=== PATIENT | male | born 1935 | race Hispanic/Latino ===

== ENCOUNTER 2019-09-27 12:16 | Inpatient (IN) | payer MEDICARE ==
[2019-09-27] MEDS ORDERED: ZIPRASIDONE MESYLATE 20 MG VIAL IM PRN (13:12)
[2019-09-27 14:34] LABS: Alanine Aminotransferase 8 units/L (7-56); Albumin 4.3 g/dL (3.9-5); BUN/Creatinine Ratio 20; Blood Urea Nitrogen 20 mg/dL (9-20); Calcium 9.1 mg/dL (8.4-10.2); Chol/HDL Ratio 4.52 %; HDL Cholesterol 59 mg/dL (40-59); Hemolysis Index 14; LDL Cholesterol,Direct 200 mg/dL (50-130)
[2019-09-27 15:21] LABS: Basophils % (Auto) 0.7 % (0.0-1.8); Eosinophils # (Auto) 0.2 K/mm3 (0.0-0.4); Eosinophils % (Auto) 2.8 % (0.0-4.3); Hematocrit 44.9 % (35.5-45.6); Hemoglobin 15.2 gm/dl (11.8-15.2); Lymphocytes # (Auto) 1.3 K/mm3 (1.2-5.4); Lymphocytes % (Auto) 19.5 % (13.4-35.0); Mean Corpuscular HGB Conc 34 % (32-34); Mean Corpuscular Volume 96 fl (84-94); Monocytes # (Auto) 0.6 K/mm3 (0.0-0.8); Monocytes % (Auto) 8.8 % (0.0-7.3); Platelet Count 346 K/mm3 (140-440); Red Blood Count 4.66 M/mm3 (3.65-5.03); Red Cell Distribution Width 12.8 % (13.2-15.2)
--- NOTE | 2019-09-27 15:59 | Consultation ---
History of Present Illness - Reason for Consult Consult date: 09/27/19 Medical management Requesting physician: NELY TIRADO - History of Present Illness 84 YO Male with Dementia admitted to [facility] for Psychiatric Stabilization. Consult placed by Dr. Tirado for medical management. Patient seen and evaluated in the recreation room. Patient denies fever, chills, chest pain, palpitation, productive cough, recent ill contacts. Patient denies any complaints at the time of my exam and interview. No reported nursing events. Patient appears comfortable. Past History Past Medical History: other (See HPI) Past Surgical History: No surgical history, Other (Reviewed) Social history: single. denies: smoking, alcohol abuse, prescription drug abuse Family history: no significant family history (Reviewed) Medications and Allergies Allergies Allergy/AdvReac Type Severity Reaction Status Date / Time No Known Allergies Allergy Verified 09/27/19 12:52 Home Medications Medication Instructions Recorded Confirmed Last Taken Type FLUoxetine [PROzac] 20 mg DAILY 09/27/19 09/27/19 04/06/19 History 20 Namenda Xr 10 mg PO DAILY 09/27/19 09/27/19 Unknown History Razadyne 24 mg PO Q24HR 09/27/19 09/27/19 Unknown History Active Meds: Active Medications Melatonin (Melatonin) 5 mg PO QHS PRN PRN Reason: Sleep Trazodone HCl (Desyrel) 50 mg PO QHS MEI Ziprasidone (Geodon) 10 mg IM Q6H PRN PRN Reason: Agitation Review of Systems Constitutional: no weight loss, no weight gain, no fever, no chills Ears, nose, mouth and throat: no ear pain, no ear discharge, no tinnitis, no decreased hearing, no nose pain, no nasal discharge, no sinus pain Cardiovascular: no chest pain, no orthopnea, no rapid/irregular heart beat, no syncope, no lightheadedness, no shortness of breath Respiratory: no cough, no cough with sputum, no excessive sputum, no dyspnea on exertion Gastrointestinal: no abdominal pain, no nausea, no vomiting, no hematemesis Genitourinary Male: no dysuria, no hematuria, no flank pain, no discharge, no urinary frequency, no urinary hesitancy, no nocturia, no incontinence Rectal: no pain, no incontinence, no bleeding Musculoskeletal: no neck stiffness, no neck pain, no shooting arm pain, no arm numbness/tingling, no leg numbness/tingling, no redness of joints Integumentary: no rash, no pruritis, no redness, no sores, no wounds Neurological: no transient paralysis, no paralysis, no weakness, no parathesias, no numbness Psychiatric: no anxiety, no sleep disturbances, no insomnia, no hypersomnia, no change in appetite, no change in libido, no suicidal ideation, no disorientation Endocrine: no cold intolerance, no polyphagia, no excessive thirst, no polydipsia, no polyuria, no nocturia Hematologic/Lymphatic: no easy bruising, no easy bleeding, no lymphadenopathy, no lymphedema Allergic/Immunologic: no urticaria, no wheezing, no anaphylaxis Exam - Constitutional General appearance: Present: no acute distress - EENT Eyes: Present: PERRL ENT: hearing intact, clear oral mucosa - Neck Neck: Present: supple, normal ROM - Respiratory Respiratory effort: normal Respiratory: bilateral: CTA - Cardiovascular Heart Sounds: Present: S1 & S2. Absent: rub, click - Extremities Extremities: pulses symmetrical, No edema Peripheral Pulses: within normal limits - Abdominal General gastrointestinal: Present: soft, non-tender, non-distended, normal bowel sounds Male genitourinary: Present: normal - Integumentary Integumentary: Present: clear, warm, dry - Musculoskeletal Musculoskeletal: gait normal, strength equal bilaterally - Psychiatric Psychiatric: appropriate mood/affect, intact judgment & insight - Neurologic Neurologic: CNII-XII intact, moves all extremities Results - Labs CBC & Chem 7: 09/27/19 13:59 09/27/19 13:59 Labs: Abnormal lab results 09/27/19 09/27/19 Range/Units 13:59 13:59 MCV 96 H (84-94) fl MCH 33 H (28-32) pg RDW 12.8 L (13.2-15.2) % [place] % (Auto) 8.8 H (0.0-7.3) % Glucose 115 H (75-100) mg/dL Cholesterol 267 H (50-199) mg/dL LDL Cholesterol Direct 200 H (50-130) mg/dL Assessment and Plan - Patient Problems (1) Dementia with behavioral disturbance Current Visit: Yes Status: Acute Plan to address problem: Supportive care, anxiolytic therapy,
[2019-09-27] MEDS ORDERED: MELATONIN 5 MG TAB PO PRN (22:00)
[2019-09-27] MEDS: traZODone 50 MG TAB PO SCH (23:13)
--- NOTE | 2019-09-28 07:24 | History and Physical Report ---
GP History & Physical - History of Present Illness Date of admission: 09/27/19 Date of Examination: 09/28/19 Reason for Admission: Psychopathology interference Chief Complaint: Behavioral disturbance History of Present Illness: Nurse Admission note: Patient is an 84 y/o male admitted to unit on 1012. he is alert and oriented x2. He has hx of Dementia and Depression. Patient verbalized Suicidal ideations yesterday but now denies. He denies homicidal thoughts and hallucinations. Patient has NKDA. Skin is intact, and he has hx of hypertension. He is pleasant and cooperative. He ate meal well. No complaints or signs of distress noted. Patient was oriented to unit and placed on Fall precaution for safety. Will continue to monitor. HPI Patient is a 84 year old male with medical history of Dementia who was admitted for behavioral disturbances. Patient states he does not know where he is, but he thinks this place could pass for a hospital. He reports taking him longer than u sual to find his room, does not know why he is here and self endorses having poor memory function and also being a chronic complainer. PAST PSYCHIATRIC HISTORY Diagnoses: Dementia Suicide attempts or Self-harm behavior: None reported Prior psychiatric hospitalizations: unknown Substance Abuse history: denies Previous psychiatric medications tried: unknown Outpatient treatment: unknown PAST MEDICAL HISTORY: unknown Family Psychiatric History: None reported or documented SOCIAL HISTORY Marital Status: Living Arrangements: unknown Employment Status: retired Access to guns/weapons: unknown Education: High School History of Abuse: none reported Legal History: none reported REVIEW OF SYSTEMS Constitutional: Negative for weight loss ENT: Negative for stridor Respiratory: Negative for cough or hemoptysis All other systems reviewed and are negative MENTAL STATUS EXAMINATION General Appearance and Behavior: Age appropriate, good hygiene, wearing appropriate clothes, good eye contact, cooperative polite with questioning. Cooperation: Participating/engaged Psychomotor Behavior: unremarkable and within normal limits Mood: Good Affect and affective range: congruent with mood Thought Process: Loose Thought Content: Illogical Speech: Normal volume, Regular rate and rhythm Intellectual Functioning: Fair Suicidal Ideation: Denies SI Homicidal Ideation: Denies HI Impulse Control: Unimpaired Insight and Judgment: Impaired Memory: Demented Attention: Distractible Orientation: Alert,and demented Diagnoses: Assessment and Plan - Psychiatric problem (1) Dementia with behavioral disturbance Current Visit: Yes Status: Acute Treatment Plan Patient will be admitted for inpatient psychiatric evaluation, medication adjustment and close monitoring The patient's behavior, mood, sleep and appetite will be closely monitored. Patient will be enrolled in individual and group therapeutic sessions and encouraged to attend. Patient will be provided with a safe and structured environment. Patient's physical health needs will be addressed by the Hospitalist. Hospitalist Consulted Labs including CBC, CMP, Lipid profile and Hemoglobin A1C ordered Social Assessment will be completed and the Roofer Assistant will work with patient and family to ensure a suitable and safe disposition Medication adjustment will be made as clinically indicated Usual Wellness Yarsanism/Preservation: - Start Trazodone 50 mg po QHS & 50 mg po QHS PRN between 10 PM & 2 AM for insomnia - Start Melatonin 5 mg po QHS to promote circadian rhythm - Start [place]-3 for brain health, reduce impulsivity, and as adjunctive treatment for mood disorder, continue upon discharge given overall benefits. - Start B1 prophylaxis with 200 mg po for 5 days The patient agreed on the treatment plan, understood the risk, benefit, alternative treatment, potential consequence of no treatment, and gave informed consent. This is an acknowledgement statement that YAZMIN HAQUE is a 84 year old M who requires inpatient psychiatric admission for treatment which could reasonably be expected to improve the patient's behavior Estimated period of time patient will need to remain in the hospital: [7 ] Plan for post-hospital care: [ outpt] Legal Status: Voluntary Patient Problems: Current Active Problems Dementia with behavioral disturbance (Acute) Reaction to Hospitalization: Accepting Medications and Allergies Allergies Allergy/AdvReac Type Severity Reaction Status Date / Time No Known Allergies Allergy Verified 09/27/19 12:52 Home Medications Medication Instructions Recorded Confirmed Last Taken Type FLUoxetine [PROzac] 20 mg DAILY 09/27/19 09/27/19 04/06/19 History 20 Namenda Xr 10 mg PO DAILY 09/27/19 09/27/19 Unknown History Razadyne 24 mg PO Q24HR 09/27/19 09/27/19 Unknown History Active Meds: Active Medications Melatonin (Melatonin) 5 mg PO QHS PRN PRN Reason: Sleep Trazodone HCl (Desyrel) 50 mg PO QHS MEI Last Admin: 09/27/19 23:13 Dose: 50 mg Documented by: Ziprasidone (Geodon) 10 mg IM Q6H PRN PRN Reason: Agitation Results - Results Labs/Vitals: Laboratory Last Values WBC 6.5 K/mm3 (4.5-11.0) 09/27/19 13:59 RBC 4.66 M/mm3 (3.65-5.03) 09/27/19 13:59 Hgb 15.2 gm/dl (11.8-15.2) 09/27/19 13:59 Hct 44.9 % (35.5-45.6) 09/27/19 13:59 MCV 96 fl (84-94) H 09/27/19 13:59 MCH 33 pg (28-32) H 09/27/19 13:59 MCHC 34 % (32-34) 09/27/19 13:59 RDW 12.8 % (13.2-15.2) L 09/27/19 13:59 Plt Count 346 K/mm3 (140-440) 09/27/19 13:59 Lymph % (Auto) 19.5 % (13.4-35.0) 09/27/19 13:59 [place] % (Auto) 8.8 % (0.0-7.3) H 09/27/19 13:59 Eos % (Auto) 2.8 % (0.0-4.3) 09/27/19 13:59 Baso % (Auto) 0.7 % (0.0-1.8) 09/27/19 13:59 Lymph # 1.3 K/mm3 (1.2-5.4) 09/27/19 13:59 [place] # 0.6 K/mm3 (0.0-0.8) 09/27/19 13:59 Eos # 0.2 K/mm3 (0.0-0.4) 09/27/19 13:59 Baso # 0.0 K/mm3 (0.0-0.1) 09/27/19 13:59 Seg Neutrophils % 68.2 % (40.0-70.0) 09/27/19 13:59 Seg Neutrophils # 4.4 K/mm3 (1.8-7.7) 09/27/19 13:59 Sodium 138 mmol/L (137-145) 09/27/19 13:59 Potassium 4.5 mmol/L (3.6-5.0) 09/27/19 13:59 Chloride 102.0 mmol/L (98-107) 09/27/19 13:59 Carbon Dioxide 24 mmol/L (22-30) 09/27/19 13:59 Anion Gap 17 mmol/L 09/27/19 13:59 BUN 20 mg/dL (9-20) 09/27/19 13:59 Creatinine 1.0 mg/dL (0.8-1.5) 09/27/19 13:59 Estimated GFR > 60 ml/min 09/27/19 13:59 BUN/Creatinine Ratio 20 % 09/27/19 13:59 Glucose 115 mg/dL (75-100) H 09/27/19 13:59 POC Glucose 84 (70-105) 09/27/19 18:15 Hemoglobin A1c 5.5 % (4-6) 09/27/19 13:59 Calcium 9.1 mg/dL (8.4-10.2) 09/27/19 13:59 Total Bilirubin 0.40 mg/dL (0.1-1.2) 09/27/19 13:59 AST 14 units/L (5-40) 09/27/19 13:59 ALT 8 units/L (7-56) 09/27/19 13:59 Alkaline Phosphatase 60 units/L (35-129) 09/27/19 13:59 Total Protein 7.1 g/dL (6.3-8.2) 09/27/19 13:59 Albumin 4.3 g/dL (3.9-5) 09/27/19 13:59 Albumin/Globulin Ratio 1.5 % 09/27/19 13:59 Triglycerides 146 mg/dL (2-149) 09/27/19 13:59 Cholesterol 267 mg/dL (50-199) H 09/27/19 13:59 LDL Cholesterol Direct 200 mg/dL (50-130) H 09/27/19 13:59 HDL Cholesterol 59 mg/dL (40-59) 09/27/19 13:59 Cholesterol/HDL Ratio 4.52 % 09/27/19 13:59 TSH 2.040 mlU/mL (0.270-4.200) 09/27/19 13:59 Last Vital Signs Temp 97.9 F 09/27/19 13:09 Pulse 59 L 09/27/19 19:23 Resp 18 09/27/19 13:09 BP 171/75 09/27/19 19:30 Pulse Ox 99 09/27/19 19:23 Physical Examination - Constitutional Vitals: Vital Signs Temp Pulse Resp BP Pulse Ox 97.9 F 59 L 18 171/75 99 09/27/19 13:09 09/27/19 19:23 09/27/19 13:09 09/27/19 19:30 09/27/19 19:23 Temperature -Last 24 Hours Temperature 97.9 F Mental Status Exam - Vital signs Last Vital Signs Temp 97.9 F 09/27/19 13:09 Pulse 59 L 09/27/19 19:23 Resp 18 09/27/19 13:09 BP 171/75 09/27/19 19:30 Pulse Ox 99 09/27/19 19:23 Assessment and Plan - Psychiatric problem (1) Dementia with behavioral disturbance Current Visit: Yes Status: Acute Physician Certification - Certification Statement Physician Certification Statement: This is an acknowledgement statement that YAZMIN HAQUE is a 84 year old M who requires inpatient psychiatric admission for treatment which could reasonably be expected to improve the patient's condition for Estimated period of time patient will need to remain in the hospital: [ ] Plan for post-hospital care: [ ]
[2019-09-28] MEDS ORDERED: NAMENDA 10 MG PO SCH (10:00)
[2019-09-28] MEDS ORDERED: FLUoxetine 20 MG CAP PO SCH (10:00)
[2019-09-28] MEDS ORDERED: GALANTAMINE 24 MG PO SCH (10:00)
[2019-09-28] MEDS: MEMANTINE 10 MG TAB PO SCH (10:14)
[2019-09-28] MEDS: FLUoxetine 10 MG TAB PO SCH (10:14)
[2019-09-28] MEDS: OMEGA-3 FATTY ACIDS/FISH OIL 1 GRAM CAP PO SCH ×3 (10:14→22:23)
[2019-09-28] MEDS: risperiDONE 0.25 MG TAB PO SCH ×3 (10:15→22:23)
--- NOTE | 2019-09-28 19:18 | Progress Note ---
Assessment and Plan - Patient Problems (1) Dementia with behavioral disturbance Current Visit: Yes Status: Acute Plan to address problem: Supportive care, anxiolytic therapy, History Interval history: 84 YO Male with Dementia admitted to [facility] for Psychiatric Stabilization. Patient seen and evaluated in the recreation room. Patient denies fever, chills, chest pain, palpitation, productive cough, recent ill contacts. Patient denies any complaints at the time of my exam and interview. No reported nursing events. Patient appears comfortable. Hospitalist Physical - Constitutional Vitals: Temp Pulse Resp BP Pulse Ox 98.0 F 67 18 133/72 99 09/28/19 10:02 09/28/19 10:02 09/28/19 10:02 09/28/19 10:02 09/28/19 10:02 General appearance: Present: no acute distress - EENT Eyes: Present: PERRL ENT: hearing intact - Neck Neck: Present: supple, normal ROM - Respiratory Respiratory: bilateral: CTA - Cardiovascular Rhythm: regular Heart Sounds: Present: S1 & S2 - Extremities Extremities: no ischemia Peripheral Pulses: within normal limits - Abdominal General gastrointestinal: soft, non-tender, non-distended - Integumentary Integumentary: Present: clear, warm, dry - Psychiatric Psychiatric: appropriate mood/affect, cooperative - Neurologic Neurologic: CNII-XII intact Results - Labs CBC & Chem 7: 09/27/19 13:59 09/27/19 13:59 Labs: Laboratory Last Values WBC 6.5 K/mm3 (4.5-11.0) 09/27/19 13:59 RBC 4.66 M/mm3 (3.65-5.03) 09/27/19 13:59 Hgb 15.2 gm/dl (11.8-15.2) 09/27/19 13:59 Hct 44.9 % (35.5-45.6) 09/27/19 13:59 MCV 96 fl (84-94) H 09/27/19 13:59 MCH 33 pg (28-32) H 09/27/19 13:59 MCHC 34 % (32-34) 09/27/19 13:59 RDW 12.8 % (13.2-15.2) L 09/27/19 13:59 Plt Count 346 K/mm3 (140-440) 09/27/19 13:59 Lymph % (Auto) 19.5 % (13.4-35.0) 09/27/19 13:59 [place] % (Auto) 8.8 % (0.0-7.3) H 09/27/19 13:59 Eos % (Auto) 2.8 % (0.0-4.3) 09/27/19 13:59 Baso % (Auto) 0.7 % (0.0-1.8) 09/27/19 13:59 Lymph # 1.3 K/mm3 (1.2-5.4) 09/27/19 13:59 [place] # 0.6 K/mm3 (0.0-0.8) 09/27/19 13:59 Eos # 0.2 K/mm3 (0.0-0.4) 09/27/19 13:59 Baso # 0.0 K/mm3 (0.0-0.1) 09/27/19 13:59 Seg Neutrophils % 68.2 % (40.0-70.0) 09/27/19 13:59 Seg Neutrophils # 4.4 K/mm3 (1.8-7.7) 09/27/19 13:59 Sodium 138 mmol/L (137-145) 09/27/19 13:59 Potassium 4.5 mmol/L (3.6-5.0) 09/27/19 13:59 Chloride 102.0 mmol/L (98-107) 09/27/19 13:59 Carbon Dioxide 24 mmol/L (22-30) 09/27/19 13:59 Anion Gap 17 mmol/L 09/27/19 13:59 BUN 20 mg/dL (9-20) 09/27/19 13:59 Creatinine 1.0 mg/dL (0.8-1.5) 09/27/19 13:59 Estimated GFR > 60 ml/min 09/27/19 13:59 BUN/Creatinine Ratio 20 % 09/27/19 13:59 Glucose 115 mg/dL (75-100) H 09/27/19 13:59 POC Glucose 84 (70-105) 09/27/19 18:15 Hemoglobin A1c 5.5 % (4-6) 09/27/19 13:59 Calcium 9.1 mg/dL (8.4-10.2) 09/27/19 13:59 Total Bilirubin 0.40 mg/dL (0.1-1.2) 09/27/19 13:59 AST 14 units/L (5-40) 09/27/19 13:59 ALT 8 units/L (7-56) 09/27/19 13:59 Alkaline Phosphatase 60 units/L (35-129) 09/27/19 13:59 Total Protein 7.1 g/dL (6.3-8.2) 09/27/19 13:59 Albumin 4.3 g/dL (3.9-5) 09/27/19 13:59 Albumin/Globulin Ratio 1.5 % 09/27/19 13:59 Triglycerides 146 mg/dL (2-149) 09/27/19 13:59 Cholesterol 267 mg/dL (50-199) H 09/27/19 13:59 LDL Cholesterol Direct 200 mg/dL (50-130) H 09/27/19 13:59 HDL Cholesterol 59 mg/dL (40-59) 09/27/19 13:59 Cholesterol/HDL Ratio 4.52 % 09/27/19 13:59 TSH 2.040 mlU/mL (0.270-4.200) 09/27/19 13:59 [place]/IV: Voiding Method Toilet Active Medications - Current Medications Current Medications: Generic Name Dose Route Start Last Admin Trade Name Freq PRN Reason Stop Dose Admin Fish Oil 2,000 mg 09/28/19 10:00 09/28/19 10:14 Fish Oil PO 2,000 mg BID MEI Administration Fluoxetine HCl 10 mg 09/28/19 10:00 09/28/19 10:14 Prozac PO 10 mg QDAY MEI Administration Melatonin 5 mg 09/27/19 22:00 Melatonin PO QHS PRN Sleep Memantine 10 mg 09/28/19 10:00 09/28/19 10:14 Memantine PO 10 mg QDAY MEI Administration Miscellaneous Medication 24 mg 09/28/19 10:00 Razadyne PO Q24HR MEI Risperidone 0.5 mg 09/28/19 10:00 09/28/19 10:15 Risperdal PO 0.5 mg BID MEI Administration Trazodone HCl 50 mg 09/27/19 22:00 09/27/19 23:13 Desyrel PO 50 mg QHS MEI Administration Ziprasidone 10 mg 09/27/19 13:12 Geodon IM Q6H PRN Agitation
[2019-09-28] MEDS: traZODone 50 MG TAB PO SCH ×2 (21:32→22:23)
--- NOTE | 2019-09-29 07:15 | Progress Note ---
Subjective Date of service: 09/29/19 Principal diagnosis: Dementia with behavioral disturbance Subjective Comment: Psych Nurse note: pt spent his evening in activity room watching television, pt is alert and oriented to person and place, easily irritable, pt is labile, he initially refused his medication, upset about being here, he said he wanted to go home, pt states, ''I don't care if I or not". He went to his room and lay down, got up after an hour, requested to use the bathroom, staff showed him his bathroom; staff offered water and medication, he took his medication and thanked the keno writer, no distress noted, will continue to monitor for safety. PSYCH PROGRESS HPI Patient laying in bed but awake, asked if I was the doctor and whats going and why is he here. Questions were answered. Patient says he thinks he is okay but not as much as he would like to be but pretty good. Pt reports sleeping well but does not remember what he ate last night. Reason to continue inpatient psychiatric management: Easily irritable towards the evening, heard yelling "I dont care if I or not". Medication increased today. MENTAL STATUS EXAMINATION General Appearance and Behavior: Age appropriate, good hygiene, wearing appropriate clothes, good eye contact, cooperative polite with questioning. Cooperation: Participating/engaged Psychomotor Behavior: unremarkable and within normal limits Mood: Good Affect and affective range: congruent with mood Thought Process: Loose Thought Content: Illogical Speech: Normal volume, Regular rate and rhythm Intellectual Functioning: Fair Suicidal Ideation: Denies SI Homicidal Ideation: Denies HI Impulse Control: Unimpaired Insight and Judgment: Impaired Memory: Demented Attention: Distractible Orientation: Alert,and demented Diagnoses: Assessment and Plan - Psychiatric problem (1) Dementia with behavioral disturbance Current Visit: Yes Status: Acute Treatment Plan Risperidone increased to 1mg BID Patient will be admitted for inpatient psychiatric evaluation, medication a djustment and close monitoring The patient's behavior, mood, sleep and appetite will be closely monitored. Patient will be enrolled in individual and group therapeutic sessions and encouraged to attend. Patient will be provided with a safe and structured environment. Patient's physical health needs will be addressed by the Hospitalist. Hospitalist Consulted Labs including CBC, CMP, Lipid profile and Hemoglobin A1C ordered Social Assessment will be completed and the Nail Galvanizer will work with patient and family to ensure a suitable and safe disposition Medication adjustment will be made as clinically indicated Usual Wellness Hindu/Preservation: - Start Trazodone 50 mg po QHS & 50 mg po QHS PRN between 10 PM & 2 AM for insomnia - Start Melatonin 5 mg po QHS to promote circadian rhythm - Start [place]-3 for brain health, reduce impulsivity, and as adjunctive treatment for mood disorder, continue upon discharge given overall benefits. - Start B1 prophylaxis with 200 mg po for 5 days The patient agreed on the treatment plan, understood the risk, benefit, alternative treatment, potential consequence of no treatment, and gave informed consent. This is an acknowledgement statement that YAZMIN HAQUE is a 84 year old M who requires inpatient psychiatric admission for treatment which could reasonably be expected to improve the patient's behavior Estimated period of time patient will need to remain in the hospital: [6] Plan for post-hospital care: [ outpt] Assessment and Plan - Patient Problems (1) Dementia with behavioral disturbance Current Visit: Yes Status: Acute Medications and Allergies Allergies Allergy/AdvReac Type Severity Reaction Status Date / Time No Known Allergies Allergy Verified 09/27/19 12:52 Home Medications Medication Instructions Recorded Confirmed Last Taken Type FLUoxetine [PROzac] 20 mg DAILY 09/27/19 09/27/19 04/06/19 History 20 Namenda Xr 10 mg PO DAILY 09/27/19 09/27/19 Unknown History Razadyne 24 mg PO Q24HR 09/27/19 09/27/19 Unknown History Active Meds: Active Medications Fish Oil (Fish Oil) 2,000 mg PO BID [facility] Last Admin: 09/28/19 22:23 Dose: 2,000 mg Documented by: Fluoxetine HCl (Prozac) 10 mg PO QDAY [facility] Last Admin: 09/28/19 10:14 Dose: 10 mg Documented by: Melatonin (Melatonin) 5 mg PO QHS PRN PRN Reason: Sleep Memantine (Memantine) 10 mg PO QDAY [facility] Last Admin: 09/28/19 10:14 Dose: 10 mg Documented by: Miscellaneous Medication (Razadyne) 24 mg PO Q24HR [facility] Risperidone (Risperdal) 0.5 mg PO BID [facility] Last Admin: 09/28/19 22:23 Dose: 0.5 mg Documented by: Trazodone HCl (Desyrel) 50 mg PO QHS [facility] Last Admin: 09/28/19 22:23 Dose: 50 mg Documented by: Ziprasidone (Geodon) 10 mg IM Q6H PRN PRN Reason: Agitation Results - Results Labs/Vitals: Laboratory Last Values WBC 6.5 K/mm3 (4.5-11.0) 09/27/19 13:59 RBC 4.66 M/mm3 (3.65-5.03) 09/27/19 13:59 Hgb 15.2 gm/dl (11.8-15.2) 09/27/19 13:59 Hct 44.9 % (35.5-45.6) 09/27/19 13:59 MCV 96 fl (84-94) H 09/27/19 13:59 MCH 33 pg (28-32) H 09/27/19 13:59 MCHC 34 % (32-34) 09/27/19 13:59 RDW 12.8 % (13.2-15.2) L 09/27/19 13:59 Plt Count 346 K/mm3 (140-440) 09/27/19 13:59 Lymph % (Auto) 19.5 % (13.4-35.0) 09/27/19 13:59 [place] % (Auto) 8.8 % (0.0-7.3) H 09/27/19 13:59 Eos % (Auto) 2.8 % (0.0-4.3) 09/27/19 13:59 Baso % (Auto) 0.7 % (0.0-1.8) 09/27/19 13:59 Lymph # 1.3 K/mm3 (1.2-5.4) 09/27/19 13:59 [place] # 0.6 K/mm3 (0.0-0.8) 09/27/19 13:59 Eos # 0.2 K/mm3 (0.0-0.4) 09/27/19 13:59 Baso # 0.0 K/mm3 (0.0-0.1) 09/27/19 13:59 Seg Neutrophils % 68.2 % (40.0-70.0) 09/27/19 13:59 Seg Neutrophils # 4.4 K/mm3 (1.8-7.7) 09/27/19 13:59 Sodium 138 mmol/L (137-145) 09/27/19 13:59 Potassium 4.5 mmol/L (3.6-5.0) 09/27/19 13:59 Chloride 102.0 mmol/L (98-107) 09/27/19 13:59 Carbon Dioxide 24 mmol/L (22-30) 09/27/19 13:59 Anion Gap 17 mmol/L 09/27/19 13:59 BUN 20 mg/dL (9-20) 09/27/19 13:59 Creatinine 1.0 mg/dL (0.8-1.5) 09/27/19 13:59 Estimated GFR > 60 ml/min 09/27/19 13:59 BUN/Creatinine Ratio 20 % 09/27/19 13:59 Glucose 115 mg/dL (75-100) H 09/27/19 13:59 POC Glucose 84 (70-105) 09/27/19 18:15 Hemoglobin A1c 5.5 % (4-6) 09/27/19 13:59 Calcium 9.1 mg/dL (8.4-10.2) 09/27/19 13:59 Total Bilirubin 0.40 mg/dL (0.1-1.2) 09/27/19 13:59 AST 14 units/L (5-40) 09/27/19 13:59 ALT 8 units/L (7-56) 09/27/19 13:59 Alkaline Phosphatase 60 units/L (35-129) 09/27/19 13:59 Total Protein 7.1 g/dL (6.3-8.2) 09/27/19 13:59 Albumin 4.3 g/dL (3.9-5) 09/27/19 13:59 Albumin/Globulin Ratio 1.5 % 09/27/19 13:59 Triglycerides 146 mg/dL (2-149) 09/27/19 13:59 Cholesterol 267 mg/dL (50-199) H 09/27/19 13:59 LDL Cholesterol Direct 200 mg/dL (50-130) H 09/27/19 13:59 HDL Cholesterol 59 mg/dL (40-59) 09/27/19 13:59 Cholesterol/HDL Ratio 4.52 % 09/27/19 13:59 TSH 2.040 mlU/mL (0.270-4.200) 09/27/19 13:59 Last Vital Signs Temp 97.6 F 09/28/19 22:00 Pulse 71 09/28/19 22:00 Resp 18 09/28/19 22:00 BP 110/69 09/28/19 22:00 Pulse Ox 98 09/28/19 22:00
[2019-09-29] MEDS: FLUoxetine 10 MG TAB PO SCH (09:49)
[2019-09-29] MEDS: MEMANTINE 10 MG TAB PO SCH (09:49)
[2019-09-29] MEDS: OMEGA-3 FATTY ACIDS/FISH OIL 1 GRAM CAP PO SCH ×2 (09:49→21:25)
[2019-09-29] MEDS: risperiDONE 1 MG TAB PO SCH ×2 (09:49→21:25)
[2019-09-29] MEDS: traZODone 50 MG TAB PO SCH (21:25)
--- NOTE | 2019-09-30 07:28 | Progress Note ---
Subjective Date of service: 09/30/19 Principal diagnosis: Dementia with behavioral disturbance Subjective Comment: Psych Nurse note:Patient is alert oriented to name, place and time. No distress noted, pt compliant with medications, eat 50%-75% of his meals. Pt is easily irritable, stays in his room most of this shift, pt say's 'just let me go home, why did you keep me here', staff explained to pt and the important of receiving treatment to get better, pt say's' What is the point'. Will continue to monitor. PSYCH PROGRESS HPI Patient seen this AM, says his having a lil bit of a FELIX and would like to stay in bed. Patient reports sleeping good and eating okay but says he does not remember going to another patients room and introducing himself as a doctor. Pt reports compliants with meds. Reason to continue inpatient psychiatric management: Irritability, meds adjustment made today. Sleep improved from previous changes. Will monitor for side effects. MENTAL STATUS EXAMINATION General Appearance and Behavior: Age appropriate, good hygiene, wearing appropriate clothes, good eye contact, cooperative polite with questioning. Cooperation: Participating/engaged Psychomotor Behavior: unremarkable and within normal limits Mood: Good Affect and affective range: congruent with mood Thought Process: Logical Thought Content: No paranoia or obsessions Speech: Normal volume, Regular rate and rhythm Intellectual Functioning: Fair Suicidal Ideation: Denies SI Homicidal Ideation: Denies HI Impulse Control: Unimpaired Insight and Judgment: Impaired Memory: Demented Attention: Distractible Orientation: Alert,and demented Diagnoses: Assessment and Plan - Psychiatric problem (1) Dementia with behavioral disturbance Current Visit: Yes Status: Acute Treatment Plan Risperidone increased to 2 mg BID Patient will be admitted for inpatient psychiatric evaluation, medication adjustment and close monitoring The patient's behavior, mood, sleep and appetite will be closely monitored. Patient will be enrolled in individual and group therapeutic sessions and encouraged to attend. Patient will be provided with a safe and structured environment. Patient's physical health needs will be addressed by the Hospitalist. Hosp italist Consulted Labs including CBC, CMP, Lipid profile and Hemoglobin A1C ordered Social Assessment will be completed and the Automatic Vulcanizing Lead Operator will work with patient and family to ensure a suitable and safe disposition Medication adjustment will be made as clinically indicated Usual Wellness Zoroastrianism/Preservation: - Start Trazodone 50 mg po QHS & 50 mg po QHS PRN between 10 PM & 2 AM for in somnia - Start Melatonin 5 mg po QHS to promote circadian rhythm - Start [place]-3 for brain health, reduce impulsivity, and as adjunctive treatment for mood disorder, continue upon discharge given overall benefits. - Start B1 prophylaxis with 200 mg po for 5 days The patient agreed on the treatment plan, understood the risk, benefit, alternative treatment, potential consequence of no treatment, and gave informed consent. This is an acknowledgement statement that YAZMIN HAQUE is a 84 year old M who requires inpatient psychiatric admission for treatment which could reasonably be expected to improve the patient's behavior Estimated period of time patient will need to remain in the hospital: [5] Plan for post-hospital care: [ outpt] Assessment and Plan - Patient Problems (1) Dementia with behavioral disturbance Current Visit: Yes Status: Acute Medications and Allergies Allergies Allergy/AdvReac Type Severity Reaction Status Date / Time No Known Allergies Allergy Verified 09/27/19 12:52 Home Medications Medication Instructions Recorded Confirmed Last Taken Type FLUoxetine [PROzac] 20 mg DAILY 09/27/19 09/27/19 04/06/19 History 20 Namenda Xr 10 mg PO DAILY 09/27/19 09/27/19 Unknown History Razadyne 24 mg PO Q24HR 09/27/19 09/27/19 Unknown History Active Meds: Active Medications Fish Oil (Fish Oil) 2,000 mg PO BID [facility] Last Admin: 09/29/19 21:25 Dose: 2,000 mg Documented by: Fluoxetine HCl (Prozac) 10 mg PO QDAY [facility] Last Admin: 09/29/19 09:49 Dose: 10 mg Documented by: Melatonin (Melatonin) 5 mg PO QHS PRN PRN Reason: Sleep Memantine (Memantine) 10 mg PO QDAY [facility] Last Admin: 09/29/19 09:49 Dose: 10 mg Documented by: Miscellaneous Medication (Razadyne) 24 mg PO Q24HR [facility] Trazodone HCl (Desyrel) 50 mg PO QHS [facility] Last Admin: 09/29/19 21:25 Dose: 50 mg Documented by: Ziprasidone (Geodon) 10 mg IM Q6H PRN PRN Reason: Agitation Results - Results Labs/Vitals: Laboratory Last Values WBC 6.5 K/mm3 (4.5-11.0) 09/27/19 13:59 RBC 4.66 M/mm3 (3.65-5.03) 09/27/19 13:59 Hgb 15.2 gm/dl (11.8-15.2) 09/27/19 13:59 Hct 44.9 % (35.5-45.6) 09/27/19 13:59 MCV 96 fl (84-94) H 09/27/19 13:59 MCH 33 pg (28-32) H 09/27/19 13:59 MCHC 34 % (32-34) 09/27/19 13:59 RDW 12.8 % (13.2-15.2) L 09/27/19 13:59 Plt Count 346 K/mm3 (140-440) 09/27/19 13:59 Lymph % (Auto) 19.5 % (13.4-35.0) 09/27/19 13:59 [place] % (Auto) 8.8 % (0.0-7.3) H 09/27/19 13:59 Eos % (Auto) 2.8 % (0.0-4.3) 09/27/19 13:59 Baso % (Auto) 0.7 % (0.0-1.8) 09/27/19 13:59 Lymph # 1.3 K/mm3 (1.2-5.4) 09/27/19 13:59 [place] # 0.6 K/mm3 (0.0-0.8) 09/27/19 13:59 Eos # 0.2 K/mm3 (0.0-0.4) 09/27/19 13:59 Baso # 0.0 K/mm3 (0.0-0.1) 09/27/19 13:59 Seg Neutrophils % 68.2 % (40.0-70.0) 09/27/19 13:59 Seg Neutrophils # 4.4 K/mm3 (1.8-7.7) 09/27/19 13:59 Sodium 138 mmol/L (137-145) 09/27/19 13:59 Potassium 4.5 mmol/L (3.6-5.0) 09/27/19 13:59 Chloride 102.0 mmol/L (98-107) 09/27/19 13:59 Carbon Dioxide 24 mmol/L (22-30) 09/27/19 13:59 Anion Gap 17 mmol/L 09/27/19 13:59 BUN 20 mg/dL (9-20) 09/27/19 13:59 Creatinine 1.0 mg/dL (0.8-1.5) 09/27/19 13:59 Estimated GFR > 60 ml/min 09/27/19 13:59 BUN/Creatinine Ratio 20 % 09/27/19 13:59 Glucose 115 mg/dL (75-100) H 09/27/19 13:59 POC Glucose 84 (70-105) 09/27/19 18:15 Hemoglobin A1c 5.5 % (4-6) 09/27/19 13:59 Calcium 9.1 mg/dL (8.4-10.2) 09/27/19 13:59 Total Bilirubin 0.40 mg/dL (0.1-1.2) 09/27/19 13:59 AST 14 units/L (5-40) 09/27/19 13:59 ALT 8 units/L (7-56) 09/27/19 13:59 Alkaline Phosphatase 60 units/L (35-129) 09/27/19 13:59 Total Protein 7.1 g/dL (6.3-8.2) 09/27/19 13:59 Albumin 4.3 g/dL (3.9-5) 09/27/19 13:59 Albumin/Globulin Ratio 1.5 % 09/27/19 13:59 Triglycerides 146 mg/dL (2-149) 09/27/19 13:59 Cholesterol 267 mg/dL (50-199) H 09/27/19 13:59 LDL Cholesterol Direct 200 mg/dL (50-130) H 09/27/19 13:59 HDL Cholesterol 59 mg/dL (40-59) 09/27/19 13:59 Cholesterol/HDL Ratio 4.52 % 09/27/19 13:59 TSH 2.040 mlU/mL (0.270-4.200) 09/27/19 13:59 Last Vital Signs Temp 98.3 F 09/29/19 19:05 Pulse 69 09/29/19 19:05 Resp 17 09/29/19 19:05 BP 96/53 09/29/19 19:05 Pulse Ox 98 09/29/19 19:05
[2019-09-30] MEDS: OMEGA-3 FATTY ACIDS/FISH OIL 1 GRAM CAP PO SCH ×2 (12:36→21:31)
[2019-09-30] MEDS: MEMANTINE 10 MG TAB PO SCH (12:37)
[2019-09-30] MEDS: risperiDONE 1 MG TAB PO SCH ×2 (12:37→21:31)
[2019-09-30] MEDS: FLUoxetine 10 MG TAB PO SCH (12:38)
[2019-09-30] MEDS: traZODone 50 MG TAB PO SCH (21:31)
--- NOTE | 2019-10-01 07:08 | Progress Note ---
Subjective Date of service: 10/01/19 Principal diagnosis: Dementia with behavioral disturbance Subjective Comment: Psych Nurse note:Patient has been awake except for one hour. He is intrusive going into other patient's rooms. He becomes angry and challenging when he is redirected. He is not oriented to where he is at. This specifications writer tried to reorient him and he does not believe he is in the hospital. When he went into one room and the patient in the room became upset this specifications writer asked him to leave the room. He jerked his arms up to hit this specifications writer. His strike was blocked. He is constantly trying doors and everything on the [place]. He can not sit still. Will continue to monitor patient for safety. PSYCH PROGRESS HPI Patient seen in room, awake and sitting on edge, reports feeling slow today and he should have done better, pt not aware of hitting staff earlier, doesnt know where he is and and why he is here. Pt reports not sleeping well, says he would like to do exercise on his neck and fingers. Reason to continue inpatient psychiatric management: Pt is sverelly demented, with major interference in behavior. Will continue to adjust medications for dose response. Pt hit staff on overnight stocker, pt is at safety risk to himself and other around him with this behavior. MENTAL STATUS EXAMINATION General Appearance and Behavior: Age appropriate, good hygiene, wearing appropriate clothes, good eye contact, cooperative polite with questioning. Cooperation: Participating/engaged Psychomotor Behavior: unremarkable and within normal limits Mood: Good Affect and affective range: congruent with mood Thought Process: Logical Thought Content: No paranoia or obsessions Speech: Normal volume, Regular rate and rhythm Intellectual Functioning: Fair Suicidal Ideation: Denies SI Homicidal Ideation: Denies HI Impulse Control: Unimpaired Insight and Judgment: Impaired Memory: Demented Attention: Distractible Orientation: Alert,and demented Diagnoses: Assessment and Plan - Psychiatric problem (1) Dementia with behavioral disturbance Current Visit: Yes Status: Acute Treatment Plan Risperidone increased to 2 mg BID. Deparkote started, for mood moderation. Klonopin .5mg BID. Trazodone increased to 100mg and Melatonin 10 mg QHS nora Patient will be admitted for inpatient psychiatric evaluation, medication adjustment and close monitoring The patient's behavior, mood, sleep and appetite will be closely monitored. Patient will be enrolled in individual and group therapeutic sessions and encouraged to attend. Patient will be provided with a safe and structured environment. Patient's physical health needs will be addressed by the Hospitalist. Hospitalist Consulted Labs including CBC, CMP, Lipid profile and Hemoglobin A1C ordered Social Assessment will be completed and the Cheese Pancake Roller will work with patie nt and family to ensure a suitable and safe disposition Medication adjustment will be made as clinically indicated Usual Wellness Sikhism/Preservation: - Start Trazodone 50 mg po QHS & 50 mg po QHS PRN between 10 PM & 2 AM for insomnia - Start Melatonin 5 mg po QHS to promote circadian rhythm - Start [place]-3 for brain health, reduce impulsivity, and as adjunctive treatment for mood disorder, continue upon discharge given overall benefits. - Start B1 prophylaxis with 200 mg po for 5 days The patient agreed on the treatment plan, understood the risk, benefit, alternative treatment, potential consequence of no treatment, and gave informed consent. This is an acknowledgement statement that YAZMIN HAQUE is a 84 year old M who requires inpatient psychiatric admission for treatment which could reasonably be expected to improve the patient's behavior Estimated period of time patient will need to remain in the hospital: [5] Plan for post-hospital care: [ outpt] Assessment and Plan - Patient Problems (1) Dementia with behavioral disturbance Current Visit: Yes Status: Acute Medications and Allergies Allergies Allergy/AdvReac Type Severity Reaction Status Date / Time No Known Allergies Allergy Verified 09/27/19 12:52 Home Medications Medication Instructions Recorded Confirmed Last Taken Type FLUoxetine [PROzac] 20 mg DAILY 09/27/19 09/27/19 04/06/19 History 20 Namenda Xr 10 mg PO DAILY 09/27/19 09/27/19 Unknown History Razadyne 24 mg PO Q24HR 09/27/19 09/27/19 Unknown History Active Meds: Active Medications Fish Oil (Fish Oil) 2,000 mg PO BID [facility] Last Admin: 09/30/19 21:31 Dose: 2,000 mg Documented by: Fluoxetine HCl (Prozac) 10 mg PO QDAY [facility] Last Admin: 09/30/19 12:38 Dose: 10 mg Documented by: Melatonin (Melatonin) 5 mg PO QHS PRN PRN Reason: Sleep Memantine (Memantine) 10 mg PO QDAY [facility] Last Admin: 09/30/19 12:37 Dose: 10 mg Documented by: Miscellaneous Medication (Razadyne) 24 mg PO Q24HR [facility] Risperidone (Risperdal) 2 mg PO BID [facility] Last Admin: 09/30/19 21:31 Dose: 2 mg Documented by: Trazodone HCl (Desyrel) 50 mg PO QHS [facility] Last Admin: 09/30/19 21:31 Dose: 50 mg Documented by: Ziprasidone (Geodon) 10 mg IM Q6H PRN PRN Reason: Agitation Results - Results Labs/Vitals: Laboratory Last Values WBC 6.5 K/mm3 (4.5-11.0) 09/27/19 13:59 RBC 4.66 M/mm3 (3.65-5.03) 09/27/19 13:59 Hgb 15.2 gm/dl (11.8-15.2) 09/27/19 13:59 Hct 44.9 % (35.5-45.6) 09/27/19 13:59 MCV 96 fl (84-94) H 09/27/19 13:59 MCH 33 pg (28-32) H 09/27/19 13:59 MCHC 34 % (32-34) 09/27/19 13:59 RDW 12.8 % (13.2-15.2) L 09/27/19 13:59 Plt Count 346 K/mm3 (140-440) 09/27/19 13:59 Lymph % (Auto) 19.5 % (13.4-35.0) 09/27/19 13:59 [place] % (Auto) 8.8 % (0.0-7.3) H 09/27/19 13:59 Eos % (Auto) 2.8 % (0.0-4.3) 09/27/19 13:59 Baso % (Auto) 0.7 % (0.0-1.8) 09/27/19 13:59 Lymph # 1.3 K/mm3 (1.2-5.4) 09/27/19 13:59 [place] # 0.6 K/mm3 (0.0-0.8) 09/27/19 13:59 Eos # 0.2 K/mm3 (0.0-0.4) 09/27/19 13:59 Baso # 0.0 K/mm3 (0.0-0.1) 09/27/19 13:59 Seg Neutrophils % 68.2 % (40.0-70.0) 09/27/19 13:59 Seg Neutrophils # 4.4 K/mm3 (1.8-7.7) 09/27/19 13:59 Sodium 138 mmol/L (137-145) 09/27/19 13:59 Potassium 4.5 mmol/L (3.6-5.0) 09/27/19 13:59 Chloride 102.0 mmol/L (98-107) 09/27/19 13:59 Carbon Dioxide 24 mmol/L (22-30) 09/27/19 13:59 Anion Gap 17 mmol/L 09/27/19 13:59 BUN 20 mg/dL (9-20) 09/27/19 13:59 Creatinine 1.0 mg/dL (0.8-1.5) 09/27/19 13:59 Estimated GFR > 60 ml/min 09/27/19 13:59 BUN/Creatinine Ratio 20 % 09/27/19 13:59 Glucose 115 mg/dL (75-100) H 09/27/19 13:59 POC Glucose 84 (70-105) 09/27/19 18:15 Hemoglobin A1c 5.5 % (4-6) 09/27/19 13:59 Calcium 9.1 mg/dL (8.4-10.2) 09/27/19 13:59 Total Bilirubin 0.40 mg/dL (0.1-1.2) 09/27/19 13:59 AST 14 units/L (5-40) 09/27/19 13:59 ALT 8 units/L (7-56) 09/27/19 13:59 Alkaline Phosphatase 60 units/L (35-129) 09/27/19 13:59 Total Protein 7.1 g/dL (6.3-8.2) 09/27/19 13:59 Albumin 4.3 g/dL (3.9-5) 09/27/19 13:59 Albumin/Globulin Ratio 1.5 % 09/27/19 13:59 Triglycerides 146 mg/dL (2-149) 09/27/19 13:59 Cholesterol 267 mg/dL (50-199) H 09/27/19 13:59 LDL Cholesterol Direct 200 mg/dL (50-130) H 09/27/19 13:59 HDL Cholesterol 59 mg/dL (40-59) 09/27/19 13:59 Cholesterol/HDL Ratio 4.52 % 09/27/19 13:59 TSH 2.040 mlU/mL (0.270-4.200) 09/27/19 13:59 Last Vital Signs Temp 97.7 F 09/30/19 08:48 Pulse 80 09/30/19 08:48 Resp 18 09/30/19 08:48 BP 109/69 09/30/19 08:48 Pulse Ox 95 09/30/19 08:48
[2019-10-01] MEDS: VALPROIC ACID 250 MG CAP PO SCH ×2 (10:06→21:08)
[2019-10-01] MEDS: OMEGA-3 FATTY ACIDS/FISH OIL 1 GRAM CAP PO SCH ×2 (10:06→21:08)
[2019-10-01] MEDS: MEMANTINE 10 MG TAB PO SCH (10:06)
[2019-10-01] MEDS: FLUoxetine 10 MG TAB PO SCH (10:06)
[2019-10-01] MEDS: clonazePAM 0.5 MG TAB PO SCH ×2 (10:07→21:08)
[2019-10-01] MEDS: risperiDONE 1 MG TAB PO SCH ×2 (10:45→21:08)
[2019-10-01] MEDS: traZODone 50 MG TAB PO SCH (21:08)
[2019-10-01] MEDS: MELATONIN 5 MG TAB PO SCH (21:08)
--- NOTE | 2019-10-01 21:15 | Progress Note ---
Assessment and Plan - Patient Problems (1) Dementia with behavioral disturbance Current Visit: Yes Status: Acute Plan to address problem: Supportive care, anxiolytic therapy, History Interval history: 84 YO Male with Dementia admitted to [facility] for Psychiatric Stabilization. Patient seen and evaluated in the recreation room. Patient denies fever, chills, chest pain, palpitation, productive cough, recent ill contacts. Patient denies any complaints at the time of my exam and interview. No reported nursing events. Patient appears comfortable. Hospitalist Physical - Constitutional Vitals: Temp Pulse Resp BP Pulse Ox 97.7 F 80 18 109/69 95 09/30/19 08:48 09/30/19 08:48 09/30/19 08:48 09/30/19 08:48 09/30/19 08:48 General appearance: Present: no acute distress - EENT Eyes: Present: PERRL, EOM intact ENT: hearing intact - Neck Neck: Present: supple - Respiratory Respiratory effort: normal Respiratory: bilateral: CTA - Cardiovascular Rhythm: regular Heart Sounds: Present: S1 & S2 - Extremities Extremities: no ischemia Peripheral Pulses: within normal limits - Abdominal General gastrointestinal: soft, non-tender, non-distended - Integumentary Integumentary: Present: clear, warm, dry - Psychiatric Psychiatric: cooperative - Neurologic Neurologic: CNII-XII intact Results - Labs CBC & Chem 7: 09/27/19 13:59 09/27/19 13:59 Labs: Laboratory Last Values WBC 6.5 K/mm3 (4.5-11.0) 09/27/19 13:59 RBC 4.66 M/mm3 (3.65-5.03) 09/27/19 13:59 Hgb 15.2 gm/dl (11.8-15.2) 09/27/19 13:59 Hct 44.9 % (35.5-45.6) 09/27/19 13:59 MCV 96 fl (84-94) H 09/27/19 13:59 MCH 33 pg (28-32) H 09/27/19 13:59 MCHC 34 % (32-34) 09/27/19 13:59 RDW 12.8 % (13.2-15.2) L 09/27/19 13:59 Plt Count 346 K/mm3 (140-440) 09/27/19 13:59 Lymph % (Auto) 19.5 % (13.4-35.0) 09/27/19 13:59 [place] % (Auto) 8.8 % (0.0-7.3) H 09/27/19 13:59 Eos % (Auto) 2.8 % (0.0-4.3) 09/27/19 13:59 Baso % (Auto) 0.7 % (0.0-1.8) 09/27/19 13:59 Lymph # 1.3 K/mm3 (1.2-5.4) 09/27/19 13:59 [place] # 0.6 K/mm3 (0.0-0.8) 09/27/19 13:59 Eos # 0.2 K/mm3 (0.0-0.4) 09/27/19 13:59 Baso # 0.0 K/mm3 (0.0-0.1) 09/27/19 13:59 Seg Neutrophils % 68.2 % (40.0-70.0) 09/27/19 13:59 Seg Neutrophils # 4.4 K/mm3 (1.8-7.7) 09/27/19 13:59 Sodium 138 mmol/L (137-145) 09/27/19 13:59 Potassium 4.5 mmol/L (3.6-5.0) 09/27/19 13:59 Chloride 102.0 mmol/L (98-107) 09/27/19 13:59 Carbon Dioxide 24 mmol/L (22-30) 09/27/19 13:59 Anion Gap 17 mmol/L 09/27/19 13:59 BUN 20 mg/dL (9-20) 09/27/19 13:59 Creatinine 1.0 mg/dL (0.8-1.5) 09/27/19 13:59 Estimated GFR > 60 ml/min 09/27/19 13:59 BUN/Creatinine Ratio 20 % 09/27/19 13:59 Glucose 115 mg/dL (75-100) H 09/27/19 13:59 POC Glucose 84 (70-105) 09/27/19 18:15 Hemoglobin A1c 5.5 % (4-6) 09/27/19 13:59 Calcium 9.1 mg/dL (8.4-10.2) 09/27/19 13:59 Total Bilirubin 0.40 mg/dL (0.1-1.2) 09/27/19 13:59 AST 14 units/L (5-40) 09/27/19 13:59 ALT 8 units/L (7-56) 09/27/19 13:59 Alkaline Phosphatase 60 units/L (35-129) 09/27/19 13:59 Total Protein 7.1 g/dL (6.3-8.2) 09/27/19 13:59 Albumin 4.3 g/dL (3.9-5) 09/27/19 13:59 Albumin/Globulin Ratio 1.5 % 09/27/19 13:59 Triglycerides 146 mg/dL (2-149) 09/27/19 13:59 Cholesterol 267 mg/dL (50-199) H 09/27/19 13:59 LDL Cholesterol Direct 200 mg/dL (50-130) H 09/27/19 13:59 HDL Cholesterol 59 mg/dL (40-59) 09/27/19 13:59 Cholesterol/HDL Ratio 4.52 % 09/27/19 13:59 TSH 2.040 mlU/mL (0.270-4.200) 09/27/19 13:59 [place]/IV: Voiding Method Toilet Active Medications - Current Medications Current Medications: Generic Name Dose Route Start Last Admin Trade Name Eliotq PRN Reason Stop Dose Admin Clonazepam 0.5 mg 10/01/19 10:00 10/01/19 21:08 Klonopin PO 0.5 mg BID [facility]I Administration Fish Oil 2,000 mg 09/28/19 10:00 10/01/19 21:08 Fish Oil PO 2,000 mg BID [facility] Administration Fluoxetine HCl 10 mg 09/28/19 10:00 10/01/19 10:06 Prozac PO 10 mg QDAY [facility] Administration Melatonin 10 mg 10/01/19 22:00 10/01/19 21:08 Melatonin PO 10 mg QHS [facility] Administration Memantine 10 mg 09/28/19 10:00 10/01/19 10:06 Memantine PO 10 mg QDAY [facility] Administration Miscellaneous Medication 24 mg 09/28/19 10:00 Razadyne PO Q24HR [facility] Risperidone 2 mg 09/30/19 10:00 10/01/19 21:08 Risperdal PO 2 mg BID [facility]I Administration Trazodone HCl 100 mg 10/01/19 22:00 10/01/19 21:08 Desyrel PO 100 mg QHS [facility] Administration Valproic Acid 250 mg 10/01/19 10:00 10/01/19 21:08 Depakene PO 250 mg BID [facility] Administration Ziprasidone 10 mg 09/27/19 13:12 Geodon IM Q6H PRN Agitation
--- NOTE | 2019-10-02 07:24 | Progress Note ---
Subjective Date of service: 10/02/19 Principal diagnosis: Dementia with behavioral disturbance Subjective Comment: Psych Nurse note: Pt spent his evening in activity room interacting with peers, pt is alert and oriented to person and place, calm and cooperative, medication compliant, refused bed time snacks, pt stated that he was not hungry, no complaints voiced, no distress noted, will continue to monitor for safety. PSYCH PROGRESS HPI Patient met in hallway, walking towards breakfast room today, remembers own name but unable to recall age correctly, pt thinks he is "74". Patient says his a little dizzy/sleepy but otherwise okay. Pt does not still know where his is or activities performed yesterday, Reason to continue inpatient psychiatric management: Day time sedation with recent medications changes and mild tremors observed, concerns for side effects as suspected. Meds titrated down. Will continue to observe for dose response and stability. Was started on deparkote yesterday, no physical agitation reported. Will continue to observe for mood stability. MENTAL STATUS EXAMINATION General Appearance and Behavior: Age appropriate, good hygiene, wearing appropriate clothes, good eye contact, cooperative polite with questioning. Cooperation: Participating/engaged Psychomotor Behavior: unremarkable and within normal limits Mood: Good Affect and affective range: congruent with mood Thought Process: Logical Thought Content: No paranoia or obsessions Speech: Normal volume, Regular rate and rhythm Intellectual Functioning: Fair Suicidal Ideation: Denies SI Homicidal Ideation: Denies HI Impulse Control: Unimpaired Insight and Judgment: Impaired Memory: Demented Attention: Distractible Orientation: Alert,and demented Diagnoses: Assessment and Plan - Psychiatric problem (1) Dementia with behavioral disturbance Current Visit: Yes Status: Acute Treatment Plan Risperidone reduced to 1mg BID due to patient day time sedation and mild tremors. Will start him on cogentin Deparkote started, for mood moderation. WIll discontinue Klonopin Trazodone increased to 100mg and Melatonin 10 mg QHS nora Patient will be admitted for inpatient psychiatric evaluation, medication adjustment and close monitoring The patient's behavior, mood, sleep and appetite will be closely monitored. Patient will be enrolled in individual and group therapeutic sessions and encouraged to attend. Patient will be provided with a safe and structured environment. Patient's physical health needs will be addressed by the Hospitalist. Hospitalist Consulted Labs including CBC, CMP, Lipid profile and Hemoglobin A1C ordered Social Assessment will be completed and the Electrical Lineman will work with patient and family to ensure a suitable and safe disposition Medication adjustment will be made as clinically indicated Usual Wellness Restorationism/Preservation: - Start Trazodone 50 mg po QHS & 50 mg po QHS PRN between 10 PM & 2 AM for insomnia - Start Melatonin 5 mg po QHS to promote circadian rhythm - Start [place]-3 for brain health, reduce impulsivity, and as adjunctive treatment for mood disorder, continue upon discharge given overall benefits. - Start B1 prophylaxis with 200 mg po for 5 days The patient agreed on the treatment plan, understood the risk, benefit, alternative treatment, potential consequence of no treatment, and gave informed consent. This is an acknowledgement statement that YAZMIN HAQUE is a 84 year old M who requires inpatient psychiatric admission for treatment which could reasonably be expected to improve the patient's behavior Estimated period of time patient will need to remain in the hospital: [4] Plan for post-hospital care: [ outpt] Assessment and Plan - Patient Problems (1) Dementia with behavioral disturbance Current Visit: Yes Status: Acute Medications and Allergies Allergies Allergy/AdvReac Type Severity Reaction Status Date / Time No Known Allergies Allergy Verified 09/27/19 12:52 Home Medications Medication Instructions Recorded Confirmed Last Taken Type FLUoxetine [PROzac] 20 mg TID 09/27/19 10/01/19 05/04/19 History 20 Galantamine ER 24 mg PO QDAY 09/27/19 10/01/19 05/04/19 10:00 History Namenda Xr 10 mg PO BID 09/27/19 10/01/19 05/04/19 History Prevastatin 10 mg PO DAILY 10/01/19 10/01/19 05/04/19 10:00 History 10 mg Active Meds: Active Medications Clonazepam (Klonopin) 0.5 mg PO BID [facility] Last Admin: 10/01/19 21:08 Dose: 0.5 mg Documented by: Fish Oil (Fish Oil) 2,000 mg PO BID [facility] Last Admin: 10/01/19 21:08 Dose: 2,000 mg Documented by: Fluoxetine HCl (Prozac) 10 mg PO QDAY [facility] Last Admin: 10/01/19 10:06 Dose: 10 mg Documented by: Melatonin (Melatonin) 10 mg PO QHS [facility] Last Admin: 10/01/19 21:08 Dose: 10 mg Documented by: Memantine (Memantine) 10 mg PO QDAY [facility] Last Admin: 10/01/19 10:06 Dose: 10 mg Documented by: Miscellaneous Medication (Razadyne) 24 mg PO Q24HR [facility] Risperidone (Risperdal) 2 mg PO BID [facility] Last Admin: 10/01/19 21:08 Dose: 2 mg Documented by: Trazodone HCl (Desyrel) 100 mg PO QHS [facility] Last Admin: 10/01/19 21:08 Dose: 100 mg Documented by: Valproic Acid (Depakene) 250 mg PO BID [facility] Last Admin: 10/01/19 21:08 Dose: 250 mg Documented by: Ziprasidone (Geodon) 10 mg IM Q6H PRN PRN Reason: Agitation Results - Results Labs/Vitals: Laboratory Last Values WBC 6.5 K/mm3 (4.5-11.0) 09/27/19 13:59 RBC 4.66 M/mm3 (3.65-5.03) 09/27/19 13:59 Hgb 15.2 gm/dl (11.8-15.2) 09/27/19 13:59 Hct 44.9 % (35.5-45.6) 09/27/19 13:59 MCV 96 fl (84-94) H 09/27/19 13:59 MCH 33 pg (28-32) H 09/27/19 13:59 MCHC 34 % (32-34) 09/27/19 13:59 RDW 12.8 % (13.2-15.2) L 09/27/19 13:59 Plt Count 346 K/mm3 (140-440) 09/27/19 13:59 Lymph % (Auto) 19.5 % (13.4-35.0) 09/27/19 13:59 [place] % (Auto) 8.8 % (0.0-7.3) H 09/27/19 13:59 Eos % (Auto) 2.8 % (0.0-4.3) 09/27/19 13:59 Baso % (Auto) 0.7 % (0.0-1.8) 09/27/19 13:59 Lymph # 1.3 K/mm3 (1.2-5.4) 09/27/19 13:59 [place] # 0.6 K/mm3 (0.0-0.8) 09/27/19 13:59 Eos # 0.2 K/mm3 (0.0-0.4) 09/27/19 13:59 Baso # 0.0 K/mm3 (0.0-0.1) 09/27/19 13:59 Seg Neutrophils % 68.2 % (40.0-70.0) 09/27/19 13:59 Seg Neutrophils # 4.4 K/mm3 (1.8-7.7) 09/27/19 13:59 Sodium 138 mmol/L (137-145) 09/27/19 13:59 Potassium 4.5 mmol/L (3.6-5.0) 09/27/19 13:59 Chloride 102.0 mmol/L (98-107) 09/27/19 13:59 Carbon Dioxide 24 mmol/L (22-30) 09/27/19 13:59 Anion Gap 17 mmol/L 09/27/19 13:59 BUN 20 mg/dL (9-20) 09/27/19 13:59 Creatinine 1.0 mg/dL (0.8-1.5) 09/27/19 13:59 Estimated GFR > 60 ml/min 09/27/19 13:59 BUN/Creatinine Ratio 20 % 09/27/19 13:59 Glucose 115 mg/dL (75-100) H 09/27/19 13:59 POC Glucose 84 (70-105) 09/27/19 18:15 Hemoglobin A1c 5.5 % (4-6) 09/27/19 13:59 Calcium 9.1 mg/dL (8.4-10.2) 09/27/19 13:59 Total Bilirubin 0.40 mg/dL (0.1-1.2) 09/27/19 13:59 AST 14 units/L (5-40) 09/27/19 13:59 ALT 8 units/L (7-56) 09/27/19 13:59 Alkaline Phosphatase 60 units/L (35-129) 09/27/19 13:59 Total Protein 7.1 g/dL (6.3-8.2) 09/27/19 13:59 Albumin 4.3 g/dL (3.9-5) 09/27/19 13:59 Albumin/Globulin Ratio 1.5 % 09/27/19 13:59 Triglycerides 146 mg/dL (2-149) 09/27/19 13:59 Cholesterol 267 mg/dL (50-199) H 09/27/19 13:59 LDL Cholesterol Direct 200 mg/dL (50-130) H 09/27/19 13:59 HDL Cholesterol 59 mg/dL (40-59) 09/27/19 13:59 Cholesterol/HDL Ratio 4.52 % 09/27/19 13:59 TSH 2.040 mlU/mL (0.270-4.200) 09/27/19 13:59 Last Vital Signs Temp 98.4 F 10/01/19 22:00 Pulse 81 10/01/19 22:00 Resp 18 10/01/19 22:00 BP 126/76 10/01/19 22:00 Pulse Ox 98 10/01/19 22:00
[2019-10-02] MEDS: risperiDONE 1 MG TAB PO SCH ×2 (10:41→22:32)
[2019-10-02] MEDS: OMEGA-3 FATTY ACIDS/FISH OIL 1 GRAM CAP PO SCH ×2 (10:41→22:33)
[2019-10-02] MEDS: FLUoxetine 10 MG TAB PO SCH (10:42)
[2019-10-02] MEDS: clonazePAM 0.5 MG TAB PO SCH (10:42)
[2019-10-02] MEDS: VALPROIC ACID 250 MG CAP PO SCH ×2 (10:42→22:32)
[2019-10-02] MEDS: MEMANTINE 10 MG TAB PO SCH (10:42)
[2019-10-02] MEDS ORDERED: risperiDONE 1 MG TAB PO SCH (16:09)
[2019-10-02] MEDS ORDERED: BENZTROPINE 1 MG TAB PO SCH (22:00)
[2019-10-02] MEDS: BENZTROPINE 2 MG TAB PO SCH (22:32)
[2019-10-02] MEDS: traZODone 50 MG TAB PO SCH (22:32)
[2019-10-02] MEDS: MELATONIN 5 MG TAB PO SCH (22:35)
--- NOTE | 2019-10-03 07:37 | Progress Note ---
Subjective Date of service: 10/03/19 Principal diagnosis: Dementia with behavioral disturbance Subjective Comment: Psych Nurse note: Pt remained alert but occasionally disoriented and requires moderate redirections. Pt however was compliant with [id number], denied any pain and remains ambulatory with steady gait. Pt also denied visual and auditory hallucinations and will continued to be monitored for safety per protocol. PSYCH PROGRESS HPI Reason to continue inpatient psychiatric management: Day time sedation with recent medications changes and mild tremors observed, concerns for side effects as suspected. Meds titrated down. Will continue to observe for dose response and stability. Was started on deparkote yesterday, no physical agitation reported. Will continue to observe for mood stability. MENTAL STATUS EXAMINATION General Appearance and Behavior: Age appropriate, good hygiene, wearing appropriate clothes, good eye contact, cooperative polite with questioning. Cooperation: Participating/engaged Psychomotor Behavior: unremarkable and within normal limits Mood: Good Affect and affective range: congruent with mood Thought Process: Logical Thought Content: No paranoia or obsessions Speech: Normal volume, Regular rate and rhythm Intellectual Functioning: Fair Suicidal Ideation: Denies SI Homicidal Ideation: Denies HI Impulse Control: Unimpaired Insight and Judgment: Impaired Memory: Demented Attention: Distractible Orientation: Alert,and demented Diagnoses: Assessment and Plan - Psychiatric problem (1) Dementia with behavioral disturbance Current Visit: Yes Status: Acute Treatment Plan Risperidone reduced to 1mg BID due to patient day time sedation and mild tremors. Will start him on cogentin Deparkote started, for mood moderation. WIll discontinue Klonopin Trazodone increased to 100mg and Melatonin 10 mg QHS nora Patient will be admitted for inpatient psychiatric evaluation, medication adjustment and close monitoring The patient's behavior, mood, sleep and appetite will be closely monitored. Patient will be enrolled in individual and group therapeutic sessions and encouraged to attend. Patient will be provided with a safe and structured environment. Patient's physical health needs will be addressed by the Hospitalist. Hospitalist Consulted Labs including CBC, CMP, Lipid profile and Hemoglobin A1C ordered Social Assessment will be completed and the Wind Up Operator will work with patient and family to ensure a suitable and safe disposition Medication adjustment will be made as clinically indicated Usual Wellness Hindu/Preservation: - Start Trazodone 50 mg po QHS & 50 mg po QHS PRN between 10 PM & 2 AM for insomnia - Start Melatonin 5 mg po QHS to promote circadian rhythm - Start [place]-3 for brain health, reduce impulsivity, and as adjunctive treatment for mood disorder, continue upon discharge given overall benefits. - Start B1 prophylaxis with 200 mg po for 5 days The patient agreed on the treatment plan, understood the risk, benefit, alternative treatment, potential consequence of no treatment, and gave informed consent. This is an acknowledgement statement that YAZMIN HAQUE is a 84 year old M who requires inpatient psychiatric admission for treatment which could reasonably be expected to improve the patient's behavior Estimated period of time patient will need to remain in the hospital: [4] Plan for post-hospital care: [ outpt] Assessment and Plan - Patient Problems (1) Dementia with behavioral disturbance Current Visit: Yes Status: Acute Medications and Allergies Allergies Allergy/AdvReac Type Severity Reaction Status Date / Time No Known Allergies Allergy Verified 09/27/19 12:52 Home Medications Medication Instructions Recorded Confirmed Last Taken Type FLUoxetine [PROzac] 20 mg TID 09/27/19 10/01/19 05/04/19 History 20 Galantamine ER 24 mg PO QDAY 09/27/19 10/01/19 05/04/19 10:00 History Namenda Xr 10 mg PO BID 09/27/19 10/01/19 05/04/19 History Prevastatin 10 mg PO DAILY 10/01/19 10/01/19 05/04/19 10:00 History 10 mg Active Meds: Active Medications Benztropine Mesylate (Cogentin) 2 mg PO QHS [facility] Last Admin: 10/02/19 22:32 Dose: 2 mg Documented by: Fish Oil (Fish Oil) 2,000 mg PO BID [facility] Last Admin: 10/02/19 22:33 Dose: 2,000 mg Documented by: Fluoxetine HCl (Prozac) 10 mg PO QDAY [facility] Last Admin: 10/02/19 10:42 Dose: 10 mg Documented by: Melatonin (Melatonin) 10 mg PO QHS [facility] Last Admin: 10/02/19 22:35 Dose: Not Given Documented by: Memantine (Memantine) 10 mg PO QDAY [facility] Last Admin: 10/02/19 10:42 Dose: 10 mg Documented by: Miscellaneous Medication (Razadyne) 24 mg PO Q24HR [facility] Risperidone (Risperdal) 1.5 mg PO BID [facility] Last Admin: 10/02/19 22:32 Dose: 1.5 mg Documented by: Trazodone HCl (Desyrel) 100 mg PO QHS [facility] Last Admin: 10/02/19 22:32 Dose: 100 mg Documented by: Valproic Acid (Depakene) 250 mg PO BID [facility] Last Admin: 10/02/19 22:32 Dose: 250 mg Documented by: Ziprasidone (Geodon) 10 mg IM Q6H PRN PRN Reason: Agitation Results - Results Labs/Vitals: Laboratory Last Values WBC 6.5 K/mm3 (4.5-11.0) 09/27/19 13:59 RBC 4.66 M/mm3 (3.65-5.03) 09/27/19 13:59 Hgb 15.2 gm/dl (11.8-15.2) 09/27/19 13:59 Hct 44.9 % (35.5-45.6) 09/27/19 13:59 MCV 96 fl (84-94) H 09/27/19 13:59 MCH 33 pg (28-32) H 09/27/19 13:59 MCHC 34 % (32-34) 09/27/19 13:59 RDW 12.8 % (13.2-15.2) L 09/27/19 13:59 Plt Count 346 K/mm3 (140-440) 09/27/19 13:59 Lymph % (Auto) 19.5 % (13.4-35.0) 09/27/19 13:59 [place] % (Auto) 8.8 % (0.0-7.3) H 09/27/19 13:59 Eos % (Auto) 2.8 % (0.0-4.3) 09/27/19 13:59 Baso % (Auto) 0.7 % (0.0-1.8) 09/27/19 13:59 Lymph # 1.3 K/mm3 (1.2-5.4) 09/27/19 13:59 [place] # 0.6 K/mm3 (0.0-0.8) 09/27/19 13:59 Eos # 0.2 K/mm3 (0.0-0.4) 09/27/19 13:59 Baso # 0.0 K/mm3 (0.0-0.1) 09/27/19 13:59 Seg Neutrophils % 68.2 % (40.0-70.0) 09/27/19 13:59 Seg Neutrophils # 4.4 K/mm3 (1.8-7.7) 09/27/19 13:59 Sodium 138 mmol/L (137-145) 09/27/19 13:59 Potassium 4.5 mmol/L (3.6-5.0) 09/27/19 13:59 Chloride 102.0 mmol/L (98-107) 09/27/19 13:59 Carbon Dioxide 24 mmol/L (22-30) 09/27/19 13:59 Anion Gap 17 mmol/L 09/27/19 13:59 BUN 20 mg/dL (9-20) 09/27/19 13:59 Creatinine 1.0 mg/dL (0.8-1.5) 09/27/19 13:59 Estimated GFR > 60 ml/min 09/27/19 13:59 BUN/Creatinine Ratio 20 % 09/27/19 13:59 Glucose 115 mg/dL (75-100) H 09/27/19 13:59 POC Glucose 84 (70-105) 09/27/19 18:15 Hemoglobin A1c 5.5 % (4-6) 09/27/19 13:59 Calcium 9.1 mg/dL (8.4-10.2) 09/27/19 13:59 Total Bilirubin 0.40 mg/dL (0.1-1.2) 09/27/19 13:59 AST 14 units/L (5-40) 09/27/19 13:59 ALT 8 units/L (7-56) 09/27/19 13:59 Alkaline Phosphatase 60 units/L (35-129) 09/27/19 13:59 Total Protein 7.1 g/dL (6.3-8.2) 09/27/19 13:59 Albumin 4.3 g/dL (3.9-5) 09/27/19 13:59 Albumin/Globulin Ratio 1.5 % 09/27/19 13:59 Triglycerides 146 mg/dL (2-149) 09/27/19 13:59 Cholesterol 267 mg/dL (50-199) H 09/27/19 13:59 LDL Cholesterol Direct 200 mg/dL (50-130) H 09/27/19 13:59 HDL Cholesterol 59 mg/dL (40-59) 09/27/19 13:59 Cholesterol/HDL Ratio 4.52 % 09/27/19 13:59 TSH 2.040 mlU/mL (0.270-4.200) 09/27/19 13:59 Last Vital Signs Temp 97.8 F 10/02/19 19:47 Pulse 65 10/02/19 19:47 Resp 16 10/02/19 19:47 BP 116/58 10/02/19 19:47 Pulse Ox 97 10/02/19 19:47
[2019-10-03] MEDS: MEMANTINE 10 MG TAB PO SCH (11:01)
[2019-10-03] MEDS: VALPROIC ACID 250 MG CAP PO SCH ×2 (11:01→21:28)
[2019-10-03] MEDS: FLUoxetine 10 MG TAB PO SCH (11:01)
[2019-10-03] MEDS: risperiDONE 1 MG TAB PO SCH ×2 (11:01→21:29)
[2019-10-03] MEDS: OMEGA-3 FATTY ACIDS/FISH OIL 1 GRAM CAP PO SCH ×2 (11:02→21:28)
[2019-10-03] MEDS: BENZTROPINE 2 MG TAB PO SCH (21:27)
[2019-10-03] MEDS: MELATONIN 5 MG TAB PO SCH (21:28)
[2019-10-03] MEDS: traZODone 50 MG TAB PO SCH (21:28)
--- NOTE | 2019-10-04 07:53 | Progress Note ---
Subjective Date of service: 10/04/19 Principal diagnosis: Dementia with behavioral disturbance Subjective Comment: Psych Nurse note: pt spent his evening in activity room interacting with peers, alert and oriented x2, calm and cooperative, able to make needs known, bright affect, mood is stable, denies si/hi, denies a/v/h, pt reported feeling better, medication compliant, refused bedtime snack, no aggressive behaviour, no distress noted, will continue to monitor for safety. PSYCH PROGRESS HPI Patient seen this AM, attempting to eat breakfast by self, provider offered assistant to the dean with gloves to help open his food due to observable mild slow tremor and muscular tone. Patient reports his day was good, complained of mild FELIX and poor sleep but nurse notes reported patient slept all through the night. Patient denies anger, feeling sad or having any request for me. Reason to continue inpatient psychiatric management: Due to patients severe dementia, his inability to raise concerns about medication side effects is diminished. Will therefore recommend atleast 2 days for observation for medication side effect and rule out potential TD, EPS like symptoms or akathasia for patients own safety at this time. Daytime somnolence resolved, mood continues to be stable with recently adjusted medications and much brighter affect, sleep also improved. Patient needs to be monitored MENTAL STATUS EXAMINATION General Appearance and Behavior: Age appropriate, good hygiene, wearing appropriate clothes, good eye contact, cooperative polite with questioning. Cooperation: Participating/engaged Psychomotor Behavior: unremarkable and within normal limits Mood: Good Affect and affective range: congruent with mood Thought Process: Illogical Thought Content: ILoose associations Speech: Normal volume, Regular rate and rhythm Intellectual Functioning: Fair Suicidal Ideation: Denies SI Homicidal Ideation: Denies HI Impulse Control: Unimpaired Insight and Judgment: Impaired Memory: Demented Attention: Distractible Orientation: Alert,and demented Diagnoses: Assessment and Plan - Psychiatric problem (1) Dementia with behavioral disturbance Current Visit: Yes Status: Acute Treatment Plan Continue current medications. Patient will be admitted for inpatient psychiatric evaluation, medication adjustment and close monitoring The patient's behavior, mood, sleep and appetite will be closely monitored. Patient will be enrolled in individual and group therapeutic sessions and encouraged to attend. Patient will be provided with a safe and structured environment. Patient's physical health needs will be addressed by the Hospitalist. Hospitalist Consulted Labs including CBC, CMP, Lipid profile and Hemoglobin A1C ordered Social Assessment will be completed and the Paint Tester will work with patient and family to ensure a suitable and safe disposition Medication adjustment will be made as clinically indicated Usual Wellness Buddhism/Preservation: - Start Trazodone 50 mg po QHS & 50 mg po QHS PRN between 10 PM & 2 AM for insomnia - Start Melatonin 5 mg po QHS to promote circadian rhythm - Start [place]-3 for brain health, reduce impulsivity, and as adjunctive treatment for mood disorder, continue upon discharge given overall benefits. - Start B1 prophylaxis with 200 mg po for 5 days The patient agreed on the treatment plan, understood the risk, benefit, alternative treatment, potential consequence of no treatment, and gave informed consent. This is an acknowledgement statement that YAZMIN HAQUE is a 84 year old M who requires inpatient psychiatric admission for treatment which could reasonably be expected to improve the patient's behavior Estimated period of time patient will need to remain in the hospital: [4] Plan for post-hospital care: [ outpt] Assessment and Plan - Patient Problems (1) Dementia with behavioral disturbance Current Visit: Yes Status: Acute Medications and Allergies Allergies Allergy/AdvReac Type Severity Reaction Status Date / Time No Known Allergies Allergy Verified 09/27/19 12:52 Home Medications Medication Instructions Recorded Confirmed Last Taken Type FLUoxetine [PROzac] 20 mg TID 09/27/19 10/01/19 05/04/19 History 20 Galantamine ER 24 mg PO QDAY 09/27/19 10/01/19 05/04/19 10:00 History Namenda Xr 10 mg PO BID 09/27/19 10/01/19 05/04/19 History Prevastatin 10 mg PO DAILY 10/01/19 10/01/19 05/04/19 10:00 History 10 mg Active Meds: Active Medications Benztropine Mesylate (Cogentin) 2 mg PO QHS [facility] Last Admin: 10/03/19 21:27 Dose: 2 mg Documented by: Fish Oil (Fish Oil) 2,000 mg PO BID [facility] Last Admin: 10/03/19 21:28 Dose: 2,000 mg Documented by: Fluoxetine HCl (Prozac) 10 mg PO QDAY [facility] Last Admin: 10/03/19 11:01 Dose: 10 mg Documented by: Melatonin (Melatonin) 10 mg PO QHS [facility] Last Admin: 10/03/19 21:28 Dose: 10 mg Documented by: Memantine (Memantine) 10 mg PO QDAY [facility] Last Admin: 10/03/19 11:01 Dose: 10 mg Documented by: Miscellaneous Medication (Razadyne) 24 mg PO Q24HR [facility] Risperidone (Risperdal) 1.5 mg PO BID [facility] Last Admin: 10/03/19 21:29 Dose: 1.5 mg Documented by: Trazodone HCl (Desyrel) 100 mg PO QHS [facility] Last Admin: 10/03/19 21:28 Dose: 100 mg Documented by: Valproic Acid (Depakene) 250 mg PO BID [facility] Last Admin: 10/03/19 21:28 Dose: 250 mg Documented by: Ziprasidone (Geodon) 10 mg IM Q6H PRN PRN Reason: Agitation Results - Results Labs/Vitals: Laboratory Last Values WBC 6.5 K/mm3 (4.5-11.0) 09/27/19 13:59 RBC 4.66 M/mm3 (3.65-5.03) 09/27/19 13:59 Hgb 15.2 gm/dl (11.8-15.2) 09/27/19 13:59 Hct 44.9 % (35.5-45.6) 09/27/19 13:59 MCV 96 fl (84-94) H 09/27/19 13:59 MCH 33 pg (28-32) H 09/27/19 13:59 MCHC 34 % (32-34) 09/27/19 13:59 RDW 12.8 % (13.2-15.2) L 09/27/19 13:59 Plt Count 346 K/mm3 (140-440) 09/27/19 13:59 Lymph % (Auto) 19.5 % (13.4-35.0) 09/27/19 13:59 [place] % (Auto) 8.8 % (0.0-7.3) H 09/27/19 13:59 Eos % (Auto) 2.8 % (0.0-4.3) 09/27/19 13:59 Baso % (Auto) 0.7 % (0.0-1.8) 09/27/19 13:59 Lymph # 1.3 K/mm3 (1.2-5.4) 09/27/19 13:59 [place] # 0.6 K/mm3 (0.0-0.8) 09/27/19 13:59 Eos # 0.2 K/mm3 (0.0-0.4) 09/27/19 13:59 Baso # 0.0 K/mm3 (0.0-0.1) 09/27/19 13:59 Seg Neutrophils % 68.2 % (40.0-70.0) 09/27/19 13:59 Seg Neutrophils # 4.4 K/mm3 (1.8-7.7) 09/27/19 13:59 Sodium 138 mmol/L (137-145) 09/27/19 13:59 Potassium 4.5 mmol/L (3.6-5.0) 09/27/19 13:59 Chloride 102.0 mmol/L (98-107) 09/27/19 13:59 Carbon Dioxide 24 mmol/L (22-30) 09/27/19 13:59 Anion Gap 17 mmol/L 09/27/19 13:59 BUN 20 mg/dL (9-20) 09/27/19 13:59 Creatinine 1.0 mg/dL (0.8-1.5) 09/27/19 13:59 Estimated GFR > 60 ml/min 09/27/19 13:59 BUN/Creatinine Ratio 20 % 09/27/19 13:59 Glucose 115 mg/dL (75-100) H 09/27/19 13:59 POC Glucose 84 (70-105) 09/27/19 18:15 Hemoglobin A1c 5.5 % (4-6) 09/27/19 13:59 Calcium 9.1 mg/dL (8.4-10.2) 09/27/19 13:59 Total Bilirubin 0.40 mg/dL (0.1-1.2) 09/27/19 13:59 AST 14 units/L (5-40) 09/27/19 13:59 ALT 8 units/L (7-56) 09/27/19 13:59 Alkaline Phosphatase 60 units/L (35-129) 09/27/19 13:59 Total Protein 7.1 g/dL (6.3-8.2) 09/27/19 13:59 Albumin 4.3 g/dL (3.9-5) 09/27/19 13:59 Albumin/Globulin Ratio 1.5 % 09/27/19 13:59 Triglycerides 146 mg/dL (2-149) 09/27/19 13:59 Cholesterol 267 mg/dL (50-199) H 09/27/19 13:59 LDL Cholesterol Direct 200 mg/dL (50-130) H 09/27/19 13:59 HDL Cholesterol 59 mg/dL (40-59) 09/27/19 13:59 Cholesterol/HDL Ratio 4.52 % 09/27/19 13:59 TSH 2.040 mlU/mL (0.270-4.200) 09/27/19 13:59 Last Vital Signs Temp 98.0 F 10/04/19 07:07 Pulse 74 10/04/19 07:07 Resp 18 10/04/19 07:07 BP 141/76 10/04/19 07:07 Pulse Ox 97 10/04/19 07:07
[2019-10-04] MEDS: VALPROIC ACID 250 MG CAP PO SCH ×2 (09:33→22:11)
[2019-10-04] MEDS: FLUoxetine 10 MG TAB PO SCH (09:33)
[2019-10-04] MEDS: risperiDONE 1 MG TAB PO SCH ×2 (09:33→22:10)
[2019-10-04] MEDS: MEMANTINE 10 MG TAB PO SCH (09:33)
[2019-10-04] MEDS: OMEGA-3 FATTY ACIDS/FISH OIL 1 GRAM CAP PO SCH ×2 (10:09→22:10)
[2019-10-04] MEDS: MELATONIN 5 MG TAB PO SCH (22:10)
[2019-10-04] MEDS: traZODone 50 MG TAB PO SCH (22:10)
[2019-10-04] MEDS: BENZTROPINE 2 MG TAB PO SCH (22:11)
[2019-10-05] MEDS: risperiDONE 1 MG TAB PO SCH ×2 (09:22→21:39)
[2019-10-05] MEDS: VALPROIC ACID 250 MG CAP PO SCH ×2 (09:22→21:39)
[2019-10-05] MEDS: MEMANTINE 10 MG TAB PO SCH (09:23)
[2019-10-05] MEDS: FLUoxetine 10 MG TAB PO SCH (09:23)
[2019-10-05] MEDS: OMEGA-3 FATTY ACIDS/FISH OIL 1 GRAM CAP PO SCH ×2 (09:23→21:36)
--- NOTE | 2019-10-05 10:21 | Discharge Summary ---
Providers - Providers Date of Admission: 09/27/19 13:38 Date of discharge: 10/05/19 Attending physician: NELY TIRADO MD 09/27/19 13:09 Consult to Physician [CONS] Routine Comment: Consulting Provider: JAD RUSHING Physician Instructions: Reason For Exam: manage medical conditions Primary care physician: [employer] Hospitalization Hospital course: The patient was provided inpatient psychiatric treatment with safe and supportive care, medication adjustment, adverse effect monitoring, medical evaluations, medical treatments, assessment and psycho-education. The patient's mood, cognition, behavior, moral support are improved and stabilized. St the time of discharge, the patient had no endangering behavior and no debilitating adverse effects. The patient agreed on potential consequences of no treatment and gave informed consent. Disposition: DC/[place]-[facility] Time spent for discharge: 35 Allergies/Adverse Reactions: Allergies No Known Allergies Allergy (Verified 09/27/19 12:52) Vital Signs: Last Vital Signs Temp 97.4 F L 10/05/19 08:16 Pulse 67 10/05/19 08:16 Resp 18 10/05/19 08:16 BP 123/76 10/05/19 08:16 Pulse Ox 95 10/05/19 08:16 Last Lab: Laboratory Last Values WBC 6.5 K/mm3 (4.5-11.0) 09/27/19 13:59 RBC 4.66 M/mm3 (3.65-5.03) 09/27/19 13:59 Hgb 15.2 gm/dl (11.8-15.2) 09/27/19 13:59 Hct 44.9 % (35.5-45.6) 09/27/19 13:59 MCV 96 fl (84-94) H 09/27/19 13:59 MCH 33 pg (28-32) H 09/27/19 13:59 MCHC 34 % (32-34) 09/27/19 13:59 RDW 12.8 % (13.2-15.2) L 09/27/19 13:59 Plt Count 346 K/mm3 (140-440) 09/27/19 13:59 Lymph % (Auto) 19.5 % (13.4-35.0) 09/27/19 13:59 [place] % (Auto) 8.8 % (0.0-7.3) H 09/27/19 13:59 Eos % (Auto) 2.8 % (0.0-4.3) 09/27/19 13:59 Baso % (Auto) 0.7 % (0.0-1.8) 09/27/19 13:59 Lymph # 1.3 K/mm3 (1.2-5.4) 09/27/19 13:59 [place] # 0.6 K/mm3 (0.0-0.8) 09/27/19 13:59 Eos # 0.2 K/mm3 (0.0-0.4) 09/27/19 13:59 Baso # 0.0 K/mm3 (0.0-0.1) 09/27/19 13:59 Seg Neutrophils % 68.2 % (40.0-70.0) 09/27/19 13:59 Seg Neutrophils # 4.4 K/mm3 (1.8-7.7) 09/27/19 13:59 Sodium 138 mmol/L (137-145) 09/27/19 13:59 Potassium 4.5 mmol/L (3.6-5.0) 09/27/19 13:59 Chloride 102.0 mmol/L (98-107) 09/27/19 13:59 Carbon Dioxide 24 mmol/L (22-30) 09/27/19 13:59 Anion Gap 17 mmol/L 09/27/19 13:59 BUN 20 mg/dL (9-20) 09/27/19 13:59 Creatinine 1.0 mg/dL (0.8-1.5) 09/27/19 13:59 Estimated GFR > 60 ml/min 09/27/19 13:59 BUN/Creatinine Ratio 20 % 09/27/19 13:59 Glucose 115 mg/dL (75-100) H 09/27/19 13:59 POC Glucose 84 (70-105) 09/27/19 18:15 Hemoglobin A1c 5.5 % (4-6) 09/27/19 13:59 Calcium 9.1 mg/dL (8.4-10.2) 09/27/19 13:59 Total Bilirubin 0.40 mg/dL (0.1-1.2) 09/27/19 13:59 AST 14 units/L (5-40) 09/27/19 13:59 ALT 8 units/L (7-56) 09/27/19 13:59 Alkaline Phosphatase 60 units/L (35-129) 09/27/19 13:59 Total Protein 7.1 g/dL (6.3-8.2) 09/27/19 13:59 Albumin 4.3 g/dL (3.9-5) 09/27/19 13:59 Albumin/Globulin Ratio 1.5 % 09/27/19 13:59 Triglycerides 146 mg/dL (2-149) 09/27/19 13:59 Cholesterol 267 mg/dL (50-199) H 09/27/19 13:59 LDL Cholesterol Direct 200 mg/dL (50-130) H 09/27/19 13:59 HDL Cholesterol 59 mg/dL (40-59) 09/27/19 13:59 Cholesterol/HDL Ratio 4.52 % 09/27/19 13:59 TSH 2.040 mlU/mL (0.270-4.200) 09/27/19 13:59 Core Measure Documentation - Palliative Care Palliative Care/ Comfort Measures: Not Applicable - Core Measures Any of the following diagnoses?: none Exam - Constitutional Vitals: Temp Pulse Resp BP Pulse Ox 97.4 F L 67 18 123/76 95 10/05/19 08:16 10/05/19 08:16 10/05/19 08:16 10/05/19 08:16 10/05/19 08:16 General appearance: Present: no acute distress - EENT Eyes: Present: PERRL, EOM intact ENT: hearing intact, clear oral mucosa - Neck Neck: Present: supple, normal ROM - Respiratory Respiratory effort: normal Plan Activity: advance as tolerated Weight Bearing Status: Weight Bear as Tolerated Care Plan Goals: Maintain good and stable mental health Plan of Treatment: The patient should be compliant with medications, not to use drugs, and not to drink alcohol. The patient understands that if suicidal ideas, homicidal ideas or any endangering feeling arise, the patient should seek assistance including, but not limited to crisis hotline, and emergency room. Follow up with: PRIMARY CARE, [Primary Care Provider] - 7 Days Prescriptions: Benztropine [Cogentin] 2 mg PO QHS #30 tablet traZODone [Desyrel] 100 mg PO QHS #30 tablet Valproic Acid [Depakene] 250 mg PO BID #60 capsule Galantamine ER 24 mg PO QDAY #30 Namenda Xr 10 mg PO BID #60 Prevastatin 10 mg PO DAILY #30 FLUoxetine [PROzac] 20 mg PO TID #90 cap risperiDONE [RisperDAL] 1.5 mg PO BID #60 tablet
[2019-10-05] MEDS: MELATONIN 5 MG TAB PO SCH (21:38)
[2019-10-05] MEDS: traZODone 50 MG TAB PO SCH (21:39)
[2019-10-05] MEDS: BENZTROPINE 2 MG TAB PO SCH (21:40)
--- NOTE | 2019-10-06 09:30 | Progress Note ---
Subjective Date of service: 10/06/19 Principal diagnosis: Dementia with behavioral disturbance Subjective Comment: During my interview with the patient today he is lying in bed. He is awake. The patient is confused. He states he is "fine." The patient says he slept okay. When asked about hallucinations he says, "no, I guess not." He denies SI/HI. Reason to continue inpatient psychiatric management: The patient is unable to care for himself. Will continue to stabilize and plan for a safe discharge. MENTAL STATUS EXAMINATION General Appearance and Behavior: Age appropriate, good hygiene, wearing appropriate clothes, good eye contact, cooperative polite with questioning. Cooperation: Participating/engaged Psychomotor Behavior: unremarkable and within normal limits Mood: okay Affect and affective range: congruent with mood Thought Process: Illogical Thought Content: loose associations Speech: Normal volume, Regular rate and rhythm Intellectual Functioning: Fair Suicidal Ideation: Denies SI Homicidal Ideation: Denies HI Impulse Control: Unimpaired Insight and Judgment: Impaired Memory: Demented Attention: Distractible Orientation: Alert,and demented Diagnoses: Assessment and Plan - Psychiatric problem (1) Dementia with behavioral disturbance Current Visit: Yes Status: Acute Treatment Plan Continue current medications. Patient will be admitted for inpatient psychiatric evaluation, medication adjustment and close monitoring The patient's behavior, mood, sleep and appetite will be closely monitored. Patient will be enrolled in individual and group therapeutic sessions and encouraged to attend. Patient will be provided with a safe and structured environment. Patient's physical health needs will be addressed by the Hospitalist. Hospitalist Consulted Labs including CBC, CMP, Lipid profile and Hemoglobin A1C ordered Social Assessment will be completed and the [employer] will work with patient and family to ensure a suitable and safe disposition Medication adjustment will be made as clinically indicated Usual Wellness Confucianism/Preservation: - Start Trazodone 50 mg po QHS & 50 mg po QHS PRN between 10 PM & 2 AM for insomnia - Start Melatonin 5 mg po QHS to promote circadian rhythm - Start [place]-3 for brain health, reduce impulsivity, and as adjunctive treatment for mood disorder, continue upon discharge given overall benefits. - Start B1 prophylaxis with 200 mg po for 5 days The patient agreed on the treatment plan, understood the risk, benefit, alternative treatment, potential consequence of no treatment, and gave informed consent. Medications and Allergies Allergies Allergy/AdvReac Type Severity Reaction Status Date / Time No Known Allergies Allergy Verified 09/27/19 12:52 Home Medications Medication Instructions Recorded Confirmed Last Taken Type Benztropine [Cogentin] 2 mg PO QHS #30 tablet 10/05/19 Unknown Rx FLUoxetine [PROzac] 20 mg PO TID #90 cap 10/05/19 Unknown Rx Galantamine ER 24 mg PO QDAY #30 10/05/19 Unknown Rx Namenda Xr 10 mg PO BID #60 10/05/19 Unknown Rx Prevastatin 10 mg PO DAILY #30 10/05/19 Unknown Rx Valproic Acid [Depakene] 250 mg PO BID #60 capsule 10/05/19 Unknown Rx risperiDONE [RisperDAL] 1.5 mg PO BID #60 tablet 10/05/19 Unknown Rx traZODone [Desyrel] 100 mg PO QHS #30 tablet 10/05/19 Unknown Rx Active Meds: Active Medications Benztropine Mesylate (Cogentin) 2 mg PO QHS [facility] Last Admin: 10/05/19 21:40 Dose: 2 mg Documented by: Fish Oil (Fish Oil) 2,000 mg PO BID [facility] Last Admin: 10/05/19 21:36 Dose: 2,000 mg Documented by: Fluoxetine HCl (Prozac) 10 mg PO QDAY [facility] Last Admin: 10/05/19 09:23 Dose: 10 mg Documented by: Melatonin (Melatonin) 10 mg PO QHS [facility] Last Admin: 10/05/19 21:38 Dose: 10 mg Documented by: Memantine (Memantine) 10 mg PO QDAY [facility] Last Admin: 10/05/19 09:23 Dose: 10 mg Documented by: Risperidone (Risperdal) 1.5 mg PO BID [facility] Last Admin: 10/05/19 21:39 Dose: 1.5 mg Documented by: Trazodone HCl (Desyrel) 100 mg PO QHS [facility] Last Admin: 10/05/19 21:39 Dose: 100 mg Documented by: Valproic Acid (Depakene) 250 mg PO BID [facility] Last Admin: 10/05/19 21:39 Dose: 250 mg Documented by: Ziprasidone (Geodon) 10 mg IM Q6H PRN PRN Reason: Agitation Results - Results Labs/Vitals: Laboratory Last Values WBC 6.5 K/mm3 (4.5-11.0) 09/27/19 13:59 RBC 4.66 M/mm3 (3.65-5.03) 09/27/19 13:59 Hgb 15.2 gm/dl (11.8-15.2) 09/27/19 13:59 Hct 44.9 % (35.5-45.6) 09/27/19 13:59 MCV 96 fl (84-94) H 09/27/19 13:59 MCH 33 pg (28-32) H 09/27/19 13:59 MCHC 34 % (32-34) 09/27/19 13:59 RDW 12.8 % (13.2-15.2) L 09/27/19 13:59 Plt Count 346 K/mm3 (140-440) 09/27/19 13:59 Lymph % (Auto) 19.5 % (13.4-35.0) 09/27/19 13:59 [place] % (Auto) 8.8 % (0.0-7.3) H 09/27/19 13:59 Eos % (Auto) 2.8 % (0.0-4.3) 09/27/19 13:59 Baso % (Auto) 0.7 % (0.0-1.8) 09/27/19 13:59 Lymph # 1.3 K/mm3 (1.2-5.4) 09/27/19 13:59 [place] # 0.6 K/mm3 (0.0-0.8) 09/27/19 13:59 Eos # 0.2 K/mm3 (0.0-0.4) 09/27/19 13:59 Baso # 0.0 K/mm3 (0.0-0.1) 09/27/19 13:59 Seg Neutrophils % 68.2 % (40.0-70.0) 09/27/19 13:59 Seg Neutrophils # 4.4 K/mm3 (1.8-7.7) 09/27/19 13:59 Sodium 138 mmol/L (137-145) 09/27/19 13:59 Potassium 4.5 mmol/L (3.6-5.0) 09/27/19 13:59 Chloride 102.0 mmol/L (98-107) 09/27/19 13:59 Carbon Dioxide 24 mmol/L (22-30) 09/27/19 13:59 Anion Gap 17 mmol/L 09/27/19 13:59 BUN 20 mg/dL (9-20) 09/27/19 13:59 Creatinine 1.0 mg/dL (0.8-1.5) 09/27/19 13:59 Estimated GFR > 60 ml/min 09/27/19 13:59 BUN/Creatinine Ratio 20 % 09/27/19 13:59 Glucose 115 mg/dL (75-100) H 09/27/19 13:59 POC Glucose 84 (70-105) 09/27/19 18:15 Hemoglobin A1c 5.5 % (4-6) 09/27/19 13:59 Calcium 9.1 mg/dL (8.4-10.2) 09/27/19 13:59 Total Bilirubin 0.40 mg/dL (0.1-1.2) 09/27/19 13:59 AST 14 units/L (5-40) 09/27/19 13:59 ALT 8 units/L (7-56) 09/27/19 13:59 Alkaline Phosphatase 60 units/L (35-129) 09/27/19 13:59 Total Protein 7.1 g/dL (6.3-8.2) 09/27/19 13:59 Albumin 4.3 g/dL (3.9-5) 09/27/19 13:59 Albumin/Globulin Ratio 1.5 % 09/27/19 13:59 Triglycerides 146 mg/dL (2-149) 09/27/19 13:59 Cholesterol 267 mg/dL (50-199) H 09/27/19 13:59 LDL Cholesterol Direct 200 mg/dL (50-130) H 09/27/19 13:59 HDL Cholesterol 59 mg/dL (40-59) 09/27/19 13:59 Cholesterol/HDL Ratio 4.52 % 09/27/19 13:59 TSH 2.040 mlU/mL (0.270-4.200) 09/27/19 13:59 Coronavirus (PCR) Negative (Negative) 10/05/19 Unknown Last Vital Signs Temp 98.7 F 10/05/19 19:26 Pulse 83 10/05/19 19:26 Resp 18 10/05/19 19:26 BP 131/67 10/05/19 19:26 Pulse Ox 99 10/05/19 19:26
[2019-10-06] MEDS: VALPROIC ACID 250 MG CAP PO SCH ×2 (19:55→22:13)
[2019-10-06] MEDS: MEMANTINE 10 MG TAB PO SCH (19:56)
[2019-10-06] MEDS: OMEGA-3 FATTY ACIDS/FISH OIL 1 GRAM CAP PO SCH ×2 (19:56→22:14)
[2019-10-06] MEDS: FLUoxetine 10 MG TAB PO SCH (19:57)
[2019-10-06] MEDS: risperiDONE 1 MG TAB PO SCH ×2 (19:57→22:14)
[2019-10-06] MEDS: traZODone 50 MG TAB PO SCH (22:13)
[2019-10-06] MEDS: BENZTROPINE 2 MG TAB PO SCH (22:15)
[2019-10-06] MEDS: MELATONIN 5 MG TAB PO SCH (22:15)
--- NOTE | 2019-10-07 09:38 | Progress Note ---
Subjective Date of service: 10/07/19 Principal diagnosis: Dementia with behavioral disturbance Subjective Comment: The patient's medical record was reviewed and the patient's progress discussed with the nursing staff. The nurse note states the patient has been sedated all day and appears too weak to get out of bed. He was more alert when vital signs were taken this morning. Patient is not opening his eyes or lift hand, wiggle toes, and responded minimally to chest rub. Blood pressure 125/76. pulse 76, Sats 95%, blood glucose 100 mg/dl. Code Met was called because patient appeared more sedated than this AM. Dr Greer Arrived on unit and stated patient was sedated. During my interview with the patient today he is lying in bed. He is awake. The patient is confused. He states, "I'm okay" when asked. He laughs and points at the wall and says, "1, 2, 3." When asked if he slept well, he says, "no not really." The patient denies SI/HI. He replies, "oh, no" when asked. Reason to continue inpatient psychiatric management: The patient is unable to care for himself. Will continue to stabilize and plan for a safe discharge. MENTAL STATUS EXAMINATION General Appearance and Behavior: Age appropriate, good hygiene, wearing appropriate clothes, good eye contact, cooperative polite with questioning. Mood: okay Affect and affective range: congruent with mood Thought Process: Illogical Thought Content: loose associations Speech: Normal volume, Regular rate and rhythm Intellectual Functioning: Fair Suicidal Ideation: Denies SI Homicidal Ideation: Denies HI Impulse Control: Unimpaired Insight and Judgment: Impaired Memory: Demented Attention: Distracted Orientation: Alert,and demented Diagnoses: Assessment and Plan - Psychiatric problem (1) Dementia with behavioral disturbance Current Visit: Yes Status: Acute Treatment Plan Continue current medications. Patient will be admitted for inpatient psychiatric evaluation, medication adjustment and close monitoring The patient's behavior, mood, sleep and appetite will be closely monitored. Patient will be enrolled in individual and group therapeutic sessions and encouraged to attend. Patient will be provided with a safe and structured environment. Patient's physical health needs will be addressed by the Hospitalist. Hospitalist Consulted Labs including CBC, CMP, Lipid profile and Hemoglobin A1C ordered Social Assessment will be completed and the [employer] will work with patient and family to ensure a suitable and safe disposition Medication adjustment will be made as clinically indicated Discontinued Trazodone to decrease daytime drowsiness Decreased Depakote to 125mg po BID to decrease tiredness and weakness Usual Wellness Jainism/Preservation: - Start Trazodone 50 mg po QHS & 50 mg po QHS PRN between 10 PM & 2 AM for insomnia - Start Melatonin 5 mg po QHS to promote circadian rhythm - Start [place]-3 for brain health, reduce impulsivity, and as adjunctive treatment for mood disorder, continue upon discharge given overall benefits. - Start B1 prophylaxis with 200 mg po for 5 days The patient agreed on the treatment plan, understood the risk, benefit, alternative treatment, potential consequence of no treatment, and gave informed consent. Medications and Allergies Allergies Allergy/AdvReac Type Severity Reaction Status Date / Time No Known Allergies Allergy Verified 09/27/19 12:52 Home Medications Medication Instructions Recorded Confirmed Last Taken Type Benztropine [Cogentin] 2 mg PO QHS #30 tablet 10/05/19 Unknown Rx FLUoxetine [PROzac] 20 mg PO TID #90 cap 10/05/19 Unknown Rx Galantamine ER 24 mg PO QDAY #30 10/05/19 Unknown Rx Namenda Xr 10 mg PO BID #60 10/05/19 Unknown Rx Prevastatin 10 mg PO DAILY #30 10/05/19 Unknown Rx Valproic Acid [Depakene] 250 mg PO BID #60 capsule 10/05/19 Unknown Rx risperiDONE [RisperDAL] 1.5 mg PO BID #60 tablet 10/05/19 Unknown Rx traZODone [Desyrel] 100 mg PO QHS #30 tablet 10/05/19 Unknown Rx Active Meds: Active Medications Benztropine Mesylate (Cogentin) 2 mg PO QHS [facility] Last Admin: 10/06/19 22:15 Dose: 2 mg Documented by: Fish Oil (Fish Oil) 2,000 mg PO BID [facility] Last Admin: 10/06/19 22:14 Dose: 2,000 mg Documented by: Fluoxetine HCl (Prozac) 10 mg PO QDAY [facility] Last Admin: 10/06/19 19:57 Dose: Not Given Documented by: Melatonin (Melatonin) 10 mg PO QHS [facility] Last Admin: 10/06/19 22:15 Dose: 10 mg Documented by: Memantine (Memantine) 10 mg PO QDAY [facility] Last Admin: 10/06/19 19:56 Dose: Not Given Documented by: Risperidone (Risperdal) 1.5 mg PO BID [facility] Last Admin: 10/06/19 22:14 Dose: 1.5 mg Documented by: Trazodone HCl (Desyrel) 100 mg PO QHS [facility] Last Admin: 10/06/19 22:13 Dose: 100 mg Documented by: Valproic Acid (Depakene) 250 mg PO BID [facility] Last Admin: 10/06/19 22:13 Dose: 250 mg Documented by: Ziprasidone (Geodon) 10 mg IM Q6H PRN PRN Reason: Agitation Results - Results Labs/Vitals: Laboratory Last Values WBC 6.5 K/mm3 (4.5-11.0) 09/27/19 13:59 RBC 4.66 M/mm3 (3.65-5.03) 09/27/19 13:59 Hgb 15.2 gm/dl (11.8-15.2) 09/27/19 13:59 Hct 44.9 % (35.5-45.6) 09/27/19 13:59 MCV 96 fl (84-94) H 09/27/19 13:59 MCH 33 pg (28-32) H 09/27/19 13:59 MCHC 34 % (32-34) 09/27/19 13:59 RDW 12.8 % (13.2-15.2) L 09/27/19 13:59 Plt Count 346 K/mm3 (140-440) 09/27/19 13:59 Lymph % (Auto) 19.5 % (13.4-35.0) 09/27/19 13:59 [place] % (Auto) 8.8 % (0.0-7.3) H 09/27/19 13:59 Eos % (Auto) 2.8 % (0.0-4.3) 09/27/19 13:59 Baso % (Auto) 0.7 % (0.0-1.8) 09/27/19 13:59 Lymph # 1.3 K/mm3 (1.2-5.4) 09/27/19 13:59 [place] # 0.6 K/mm3 (0.0-0.8) 09/27/19 13:59 Eos # 0.2 K/mm3 (0.0-0.4) 09/27/19 13:59 Baso # 0.0 K/mm3 (0.0-0.1) 09/27/19 13:59 Seg Neutrophils % 68.2 % (40.0-70.0) 09/27/19 13:59 Seg Neutrophils # 4.4 K/mm3 (1.8-7.7) 09/27/19 13:59 Sodium 138 mmol/L (137-145) 09/27/19 13:59 Potassium 4.5 mmol/L (3.6-5.0) 09/27/19 13:59 Chloride 102.0 mmol/L (98-107) 09/27/19 13:59 Carbon Dioxide 24 mmol/L (22-30) 09/27/19 13:59 Anion Gap 17 mmol/L 09/27/19 13:59 BUN 20 mg/dL (9-20) 09/27/19 13:59 Creatinine 1.0 mg/dL (0.8-1.5) 09/27/19 13:59 Estimated GFR > 60 ml/min 09/27/19 13:59 BUN/Creatinine Ratio 20 % 09/27/19 13:59 Glucose 115 mg/dL (75-100) H 09/27/19 13:59 POC Glucose 118 (70-105) H 10/06/19 20:41 Hemoglobin A1c 5.5 % (4-6) 09/27/19 13:59 Calcium 9.1 mg/dL (8.4-10.2) 09/27/19 13:59 Total Bilirubin 0.40 mg/dL (0.1-1.2) 09/27/19 13:59 AST 14 units/L (5-40) 09/27/19 13:59 ALT 8 units/L (7-56) 09/27/19 13:59 Alkaline Phosphatase 60 units/L (35-129) 09/27/19 13:59 Total Protein 7.1 g/dL (6.3-8.2) 09/27/19 13:59 Albumin 4.3 g/dL (3.9-5) 09/27/19 13:59 Albumin/Globulin Ratio 1.5 % 09/27/19 13:59 Triglycerides 146 mg/dL (2-149) 09/27/19 13:59 Cholesterol 267 mg/dL (50-199) H 09/27/19 13:59 LDL Cholesterol Direct 200 mg/dL (50-130) H 09/27/19 13:59 HDL Cholesterol 59 mg/dL (40-59) 09/27/19 13:59 Cholesterol/HDL Ratio 4.52 % 09/27/19 13:59 TSH 2.040 mlU/mL (0.270-4.200) 09/27/19 13:59 Coronavirus (PCR) Negative (Negative) 10/05/19 Unknown Last Vital Signs Temp 97.6 F 10/06/19 20:03 Pulse 65 10/06/19 20:03 Resp 20 10/06/19 20:03 BP 123/77 10/06/19 20:03 Pulse Ox 98 10/06/19 20:03
[2019-10-07] MEDS: VALPROIC ACID 250 MG CAP PO SCH ×2 (19:47→22:06)
[2019-10-07] MEDS: risperiDONE 1 MG TAB PO SCH ×2 (19:48→22:06)
[2019-10-07] MEDS: FLUoxetine 10 MG TAB PO SCH (19:48)
[2019-10-07] MEDS: OMEGA-3 FATTY ACIDS/FISH OIL 1 GRAM CAP PO SCH ×2 (19:48→22:06)
[2019-10-07] MEDS: MEMANTINE 10 MG TAB PO SCH (19:48)
[2019-10-07] MEDS: MELATONIN 5 MG TAB PO SCH (21:59)
[2019-10-07] MEDS: traZODone 50 MG TAB PO SCH (21:59)
[2019-10-07] MEDS: BENZTROPINE 2 MG TAB PO SCH (21:59)
[2019-10-08] MEDS: OMEGA-3 FATTY ACIDS/FISH OIL 1 GRAM CAP PO SCH ×2 (09:16→22:27)
--- NOTE | 2019-10-08 10:14 | Progress Note ---
Subjective Date of service: 10/08/19 Principal diagnosis: Dementia with behavioral disturbance Subjective Comment: The patient's medical record was reviewed and the patient's progress discussed with the nursing staff. The nurse note states the patient is bizarre, unable to comprehend, unable to stand or transfer himself, a/o x1, slept most of the day, very confused and disorganized he did not eat breakfast or lunch, but was fed dinner and he ate 50%. Incontinent of bladder, total care with ADLS. During my interview with the patient today he is lying in bed. He is awake. He is confused, but he's pleasant. He smiles. He is nonsensical. He is pointing at something in the corner. He says he slept "good" when asked. When asked about hallucinations the patient states, "oh, I don't know." Spoke with the hospitalist concerning the patients decline. He will round on the patient today. Reason to continue inpatient psychiatric management: The patient is exhibiting adverse side effects from medications that require inpatient admission for close monitoring. MENTAL STATUS EXAMINATION General Appearance and Behavior: Age appropriate, pleasant, polite Mood: Okay Affect and affective range: congruent with mood Thought Process: Illogical Thought Content: loose associations Speech: Normal volume, Regular rate and rhythm Suicidal Ideation: Denies SI Homicidal Ideation: Denies HI Hallucinations: "I don't know" Delusions: Yes Impulse Control: Unimpaired Insight and Judgment: Impaired Memory: Demented Attention: Distracted Orientation: Alert,and demented Diagnoses: Assessment and Plan - Psychiatric problem (1) Dementia with behavioral disturbance Current Visit: Yes Status: Acute Treatment Plan Continue current medications. Patient will be admitted for inpatient psychiatric evaluation, medication adjustment and close monitoring The patient's behavior, mood, sleep and appetite will be closely monitored. Patient will be enrolled in individual and group therapeutic sessions and encouraged to attend. Patient will be provided with a safe and structured environment. Patient's physical health needs will be addressed by the Hospitalist. Hospitalist Consulted Labs including CBC, CMP, Lipid profile and Hemoglobin A1C ordered Valproic Acid level Social Assessment will be completed and the Profiling Machine Operator will work with patient and family to ensure a suitable and safe disposition Medication adjustment will be made as clinically indicated Discontinue Depakote due to it's potential to cause loss of strength. Discontinue Risperidone due to it's potential to cause loss of balance and increase in amount of urine. Usual Wellness Denominational/Preservation: - Start Trazodone 50 mg po QHS & 50 mg po QHS PRN between 10 PM & 2 AM for insomnia - Start Melatonin 5 mg po QHS to promote circadian rhythm - Start [place]-3 for brain health, reduce impulsivity, and as adjunctive treatment for mood disorder, continue upon discharge given overall benefits. - Start B1 prophylaxis with 200 mg po for 5 days The patient agreed on the treatment plan, understood the risk, benefit, alternative treatment, potential consequence of no treatment, and gave informed consent. Medications and Allergies Allergies Allergy/AdvReac Type Severity Reaction Status Date / Time No Known Allergies Allergy Verified 09/27/19 12:52 Home Medications Medication Instructions Recorded Confirmed Last Taken Type Benztropine [Cogentin] 2 mg PO QHS #30 tablet 10/05/19 Unknown Rx FLUoxetine [PROzac] 20 mg PO TID #90 cap 10/05/19 Unknown Rx Galantamine ER 24 mg PO QDAY #30 10/05/19 Unknown Rx Namenda Xr 10 mg PO BID #60 10/05/19 Unknown Rx Prevastatin 10 mg PO DAILY #30 10/05/19 Unknown Rx Valproic Acid [Depakene] 250 mg PO BID #60 capsule 10/05/19 Unknown Rx risperiDONE [RisperDAL] 1.5 mg PO BID #60 tablet 10/05/19 Unknown Rx traZODone [Desyrel] 100 mg PO QHS #30 tablet 10/05/19 Unknown Rx Active Meds: Active Medications Benztropine Mesylate (Cogentin) 2 mg PO QHS [facility] Last Admin: 10/07/19 21:59 Dose: 2 mg Documented by: Fish Oil (Fish Oil) 2,000 mg PO BID [facility] Last Admin: 10/08/19 09:16 Dose: 2,000 mg Documented by: Fluoxetine HCl (Prozac) 10 mg PO QDAY [facility] Last Admin: 10/07/19 19:48 Dose: Not Given Documented by: Melatonin (Melatonin) 10 mg PO QHS [facility] Last Admin: 10/07/19 21:59 Dose: 10 mg Documented by: Memantine (Memantine) 10 mg PO QDAY [facility] Last Admin: 10/07/19 19:48 Dose: Not Given Documented by: Trazodone HCl (Desyrel) 50 mg PO QHS [facility] Last Admin: 10/07/19 21:59 Dose: 50 mg Documented by: Ziprasidone (Geodon) 10 mg IM Q6H PRN PRN Reason: Agitation Results - Results Labs/Vitals: Laboratory Last Values WBC 6.5 K/mm3 (4.5-11.0) 09/27/19 13:59 RBC 4.66 M/mm3 (3.65-5.03) 09/27/19 13:59 Hgb 15.2 gm/dl (11.8-15.2) 09/27/19 13:59 Hct 44.9 % (35.5-45.6) 09/27/19 13:59 MCV 96 fl (84-94) H 09/27/19 13:59 MCH 33 pg (28-32) H 09/27/19 13:59 MCHC 34 % (32-34) 09/27/19 13:59 RDW 12.8 % (13.2-15.2) L 09/27/19 13:59 Plt Count 346 K/mm3 (140-440) 09/27/19 13:59 Lymph % (Auto) 19.5 % (13.4-35.0) 09/27/19 13:59 [place] % (Auto) 8.8 % (0.0-7.3) H 09/27/19 13:59 Eos % (Auto) 2.8 % (0.0-4.3) 09/27/19 13:59 Baso % (Auto) 0.7 % (0.0-1.8) 09/27/19 13:59 Lymph # 1.3 K/mm3 (1.2-5.4) 09/27/19 13:59 [place] # 0.6 K/mm3 (0.0-0.8) 09/27/19 13:59 Eos # 0.2 K/mm3 (0.0-0.4) 09/27/19 13:59 Baso # 0.0 K/mm3 (0.0-0.1) 09/27/19 13:59 Seg Neutrophils % 68.2 % (40.0-70.0) 09/27/19 13:59 Seg Neutrophils # 4.4 K/mm3 (1.8-7.7) 09/27/19 13:59 Sodium 138 mmol/L (137-145) 09/27/19 13:59 Potassium 4.5 mmol/L (3.6-5.0) 09/27/19 13:59 Chloride 102.0 mmol/L (98-107) 09/27/19 13:59 Carbon Dioxide 24 mmol/L (22-30) 09/27/19 13:59 Anion Gap 17 mmol/L 09/27/19 13:59 BUN 20 mg/dL (9-20) 09/27/19 13:59 Creatinine 1.0 mg/dL (0.8-1.5) 09/27/19 13:59 Estimated GFR > 60 ml/min 09/27/19 13:59 BUN/Creatinine Ratio 20 % 09/27/19 13:59 Glucose 115 mg/dL (75-100) H 09/27/19 13:59 POC Glucose 118 (70-105) H 10/06/19 20:41 Hemoglobin A1c 5.5 % (4-6) 09/27/19 13:59 Calcium 9.1 mg/dL (8.4-10.2) 09/27/19 13:59 Total Bilirubin 0.40 mg/dL (0.1-1.2) 09/27/19 13:59 AST 14 units/L (5-40) 09/27/19 13:59 ALT 8 units/L (7-56) 09/27/19 13:59 Alkaline Phosphatase 60 units/L (35-129) 09/27/19 13:59 Total Protein 7.1 g/dL (6.3-8.2) 09/27/19 13:59 Albumin 4.3 g/dL (3.9-5) 09/27/19 13:59 Albumin/Globulin Ratio 1.5 % 09/27/19 13:59 Triglycerides 146 mg/dL (2-149) 09/27/19 13:59 Cholesterol 267 mg/dL (50-199) H 09/27/19 13:59 LDL Cholesterol Direct 200 mg/dL (50-130) H 09/27/19 13:59 HDL Cholesterol 59 mg/dL (40-59) 09/27/19 13:59 Cholesterol/HDL Ratio 4.52 % 09/27/19 13:59 TSH 2.040 mlU/mL (0.270-4.200) 09/27/19 13:59 Coronavirus (PCR) Negative (Negative) 10/05/19 Unknown Last Vital Signs Temp 97.8 F 10/08/19 07:00 Pulse 79 10/08/19 07:00 Resp 18 10/08/19 07:00 BP 134/90 10/08/19 07:00 Pulse Ox 97 10/08/19 07:00
[2019-10-08] MEDS: FLUoxetine 10 MG TAB PO SCH (10:43)
[2019-10-08] MEDS: MEMANTINE 10 MG TAB PO SCH (10:43)
--- NOTE | 2019-10-08 18:07 | Cat Scan Report ---
CT head/brain wo con INDICATION / CLINICAL INFORMATION: 84 years Male; encephalopathy. TECHNIQUE: Routine CT head without contrast. All CT scans at this location are performed using CT dos e reduction for ALARA by means of automated exposure control. COMPARISON: None. FINDINGS: BRAIN / INTRACRANIAL CONTENTS: There is mild cerebral white matter disease most consistent with micro vascular angiopathy. There is mild cerebral atrophy with prominence of the ventricular system. The mo tion degrades the image quality. However, there is no clear CT evidence of acute intracranial hemorrh age or significant mass effect. ORBITS: No significant abnormality of visualized orbits. SINUSES / MASTOIDS: No significant abnormality in the visualized paranasal sinuses or mastoid air julio ls. CRANIOCERVICAL JUNCTION: No significant abnormality. ADDITIONAL FINDINGS: None. IMPRESSION: 1. 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 Signer Name: Maurice Hernandez MD Signed: 10/08/2019 6:03 PM Workstation Name: [id number]
--- NOTE | 2019-10-08 19:23 | Progress Note ---
Assessment and Plan Assessment and plan: 84 YO Male with Dementia admitted to [facility] for Psychiatric Stabilization. Patient denies fever, chills, chest pain, palpitation, productive cough, recent ill contacts. Patient denies any complaints at the time of my exam and interview. No reported nursing events. I was called as patient had change in mental status. On evaluation the patient is altered and not following commands, nursing staff reports that this is not unusual for the patient but he normally is ambulatory but today he has not been. Dementia with worsening behavioral changes Ataxic Gait Dyslipidemia PLAN CT head check labs check ammonia level History Interval history: Patient seen and examined, still with confusion per staff. Hospitalist Physical - Constitutional Vitals: Temp Pulse Resp BP Pulse Ox 97.8 F 79 18 134/90 97 10/08/19 07:00 10/08/19 07:00 10/08/19 07:00 10/08/19 07:00 10/08/19 07:00 General appearance: Present: no acute distress - EENT Eyes: Present: PERRL, EOM intact ENT: hearing intact - Neck Neck: Present: supple, normal ROM - Respiratory Respiratory effort: normal Respiratory: bilateral: CTA - Cardiovascular Rhythm: regular Heart Sounds: Present: S1 & S2. Absent: systolic murmur, diastolic murmur - Extremities Extremities: no ischemia, pulses intact, pulses symmetrical, No edema, normal temperature, normal color, Full ROM - Abdominal General gastrointestinal: soft, non-tender, non-distended, normal bowel sounds - Integumentary Integumentary: Present: clear, warm, dry - Psychiatric Psychiatric: agitated, other (confused, not following commands) - Neurologic Neurologic: CNII-XII intact, moves all extremities - Allied Health Allied health notes reviewed: nursing Results - Labs CBC & Chem 7: 09/27/19 13:59 09/27/19 13:59 Labs: Laboratory Last Values WBC 6.5 K/mm3 (4.5-11.0) 09/27/19 13:59 RBC 4.66 M/mm3 (3.65-5.03) 09/27/19 13:59 Hgb 15.2 gm/dl (11.8-15.2) 09/27/19 13:59 Hct 44.9 % (35.5-45.6) 09/27/19 13:59 MCV 96 fl (84-94) H 09/27/19 13:59 MCH 33 pg (28-32) H 09/27/19 13:59 MCHC 34 % (32-34) 09/27/19 13:59 RDW 12.8 % (13.2-15.2) L 09/27/19 13:59 Plt Count 346 K/mm3 (140-440) 09/27/19 13:59 Lymph % (Auto) 19.5 % (13.4-35.0) 09/27/19 13:59 [place] % (Auto) 8.8 % (0.0-7.3) H 09/27/19 13:59 Eos % (Auto) 2.8 % (0.0-4.3) 09/27/19 13:59 Baso % (Auto) 0.7 % (0.0-1.8) 09/27/19 13:59 Lymph # 1.3 K/mm3 (1.2-5.4) 09/27/19 13:59 [place] # 0.6 K/mm3 (0.0-0.8) 09/27/19 13:59 Eos # 0.2 K/mm3 (0.0-0.4) 09/27/19 13:59 Baso # 0.0 K/mm3 (0.0-0.1) 09/27/19 13:59 Seg Neutrophils % 68.2 % (40.0-70.0) 09/27/19 13:59 Seg Neutrophils # 4.4 K/mm3 (1.8-7.7) 09/27/19 13:59 Sodium 138 mmol/L (137-145) 09/27/19 13:59 Potassium 4.5 mmol/L (3.6-5.0) 09/27/19 13:59 Chloride 102.0 mmol/L (98-107) 09/27/19 13:59 Carbon Dioxide 24 mmol/L (22-30) 09/27/19 13:59 Anion Gap 17 mmol/L 09/27/19 13:59 BUN 20 mg/dL (9-20) 09/27/19 13:59 Creatinine 1.0 mg/dL (0.8-1.5) 09/27/19 13:59 Estimated GFR > 60 ml/min 09/27/19 13:59 BUN/Creatinine Ratio 20 % 09/27/19 13:59 Glucose 115 mg/dL (75-100) H 09/27/19 13:59 POC Glucose 118 (70-105) H 10/06/19 20:41 Hemoglobin A1c 5.5 % (4-6) 09/27/19 13:59 Calcium 9.1 mg/dL (8.4-10.2) 09/27/19 13:59 Total Bilirubin 0.40 mg/dL (0.1-1.2) 09/27/19 13:59 AST 14 units/L (5-40) 09/27/19 13:59 ALT 8 units/L (7-56) 09/27/19 13:59 Alkaline Phosphatase 60 units/L (35-129) 09/27/19 13:59 Total Protein 7.1 g/dL (6.3-8.2) 09/27/19 13:59 Albumin 4.3 g/dL (3.9-5) 09/27/19 13:59 Albumin/Globulin Ratio 1.5 % 09/27/19 13:59 Triglycerides 146 mg/dL (2-149) 09/27/19 13:59 Cholesterol 267 mg/dL (50-199) H 09/27/19 13:59 LDL Cholesterol Direct 200 mg/dL (50-130) H 09/27/19 13:59 HDL Cholesterol 59 mg/dL (40-59) 09/27/19 13:59 Cholesterol/HDL Ratio 4.52 % 09/27/19 13:59 TSH 2.040 mlU/mL (0.270-4.200) 09/27/19 13:59 Coronavirus (PCR) Negative (Negative) 10/05/19 Unknown [place]/IV: Voiding Method Incontinent Active Medications - Current Medications Current Medications: Generic Name Dose Route Start Last Admin Trade Name Freq PRN Reason Stop Dose Admin Benztropine Mesylate 2 mg 10/02/19 22:00 10/07/19 21:59 Cogentin PO 2 mg QHS [facility] Administration Fish Oil 2,000 mg 09/28/19 10:00 10/08/19 09:16 Fish Oil PO 2,000 mg BID [facility] Administration Fluoxetine HCl 10 mg 09/28/19 10:00 10/08/19 10:43 Prozac PO 10 mg QDAY [facility] Administration Melatonin 10 mg 10/01/19 22:00 10/07/19 21:59 Melatonin PO 10 mg QHS [facility] Administration Memantine 10 mg 09/28/19 10:00 10/08/19 10:43 Memantine PO 10 mg QDAY [facility] Administration Trazodone HCl 50 mg 10/07/19 09:45 10/07/19 21:59 Desyrel PO 50 mg QHS [facility] Administration Ziprasidone 10 mg 09/27/19 13:12 Geodon IM Q6H PRN Agitation Nutrition/Malnutrition Assess - Dietary Evaluation Nutrition/Malnutrition Findings: Nutrition Notes Start: 10/04/19 07:42 Freq: Status: Active Protocol: Document 10/04/19 07:42 LP (Rec: 10/04/19 07:42 LP [id number]) Nutrition Notes Need for Assessment generated from: LOS Initial or Follow up Brief Note Subjective/Other Information Screen for LOS. Pt consuming 75-100% of meals. Nutrition Intervention Revisit per MD consult or patient Sign Off request:
[2019-10-08 21:58] VITALS: BP 138/90
[2019-10-08] MEDS: MELATONIN 5 MG TAB PO SCH (22:27)
[2019-10-08] MEDS: traZODone 50 MG TAB PO SCH (22:28)
[2019-10-08] MEDS: BENZTROPINE 2 MG TAB PO SCH (22:28)
[2019-10-09 05:43] LABS: Basophils % (Auto) 0.5 % (0.0-1.8); Eosinophils # (Auto) 0.1 K/mm3 (0.0-0.4); Eosinophils % (Auto) 1.3 % (0.0-4.3); Hematocrit 41.4 % (35.5-45.6); Hemoglobin 14.5 gm/dl (11.8-15.2); Lymphocytes # (Auto) 1.2 K/mm3 (1.2-5.4); Lymphocytes % (Auto) 11.5 % (13.4-35.0); Mean Corpuscular HGB Conc 35 % (32-34); Mean Corpuscular Volume 94 fl (84-94); Monocytes # (Auto) 0.8 K/mm3 (0.0-0.8); Monocytes % (Auto) 8.3 % (0.0-7.3); Platelet Count 236 K/mm3 (140-440); Red Blood Count 4.42 M/mm3 (3.65-5.03); Red Cell Distribution Width 12.2 % (13.2-15.2)
[2019-10-09 06:01] LABS: BUN/Creatinine Ratio 32; Blood Urea Nitrogen 29 mg/dL (9-20); Hemolysis Index 8
[2019-10-09] MEDS: OMEGA-3 FATTY ACIDS/FISH OIL 1 GRAM CAP PO SCH (09:50)
[2019-10-09] MEDS: MEMANTINE 10 MG TAB PO SCH (09:50)
--- NOTE | 2019-10-09 10:03 | Discharge Summary ---
Providers - Providers Date of Admission: 09/27/19 13:38 Date of discharge: 10/09/19 Attending physician: NELY TIRADO MD 09/27/19 13:09 Consult to Physician [CONS] Routine Comment: Consulting Provider: KATELIN MONTOYA Physician Instructions: Reason For Exam: manage medical conditions Primary care physician: TIMBER TREATING TANK OPERATOR Hospitalization Reason for admission: aggitatione Admitting Diagnosis: F02.81 - DEMENTIA IN OTH DISEASES CLASSD ELSWHR W BEHAVIORAL DISTURB Hospital course: The patient was provided inpatient psychiatric treatment with safe and supportive care, medication adjustment, adverse effect monitoring, medical evaluations, medical treatments, assessment and psycho-education. The patient's mood, cognition, behavior, moral support are improved and stabilized. St the time of discharge, the patient had no endangering behavior and no debilitating adverse effects. The patient agreed on potential consequences of no treatment and gave informed consent. Disposition: /-03 [facility] Time spent for discharge: 45 Allergies/Adverse Reactions: Allergies No Known Allergies Allergy (Verified 09/27/19 12:52) Vital Signs: Last Vital Signs Temp 98.1 F 10/08/19 21:56 Pulse 110 H 10/08/19 21:56 Resp 18 10/08/19 21:56 BP 138/90 10/08/19 21:56 Pulse Ox 90 10/08/19 19:38 Last Lab: Laboratory Last Values WBC 10.0 K/mm3 (4.5-11.0) 10/09/19 05:22 RBC 4.42 M/mm3 (3.65-5.03) 10/09/19 05:22 Hgb 14.5 gm/dl (11.8-15.2) 10/09/19 05:22 Hct 41.4 % (35.5-45.6) 10/09/19 05:22 MCV 94 fl (84-94) 10/09/19 05:22 MCH 33 pg (28-32) H 10/09/19 05:22 MCHC 35 % (32-34) H 10/09/19 05:22 RDW 12.2 % (13.2-15.2) L 10/09/19 05:22 Plt Count 236 K/mm3 (140-440) 10/09/19 05:22 Lymph % (Auto) 11.5 % (13.4-35.0) L 10/09/19 05:22 [place] % (Auto) 8.3 % (0.0-7.3) H 10/09/19 05:22 Eos % (Auto) 1.3 % (0.0-4.3) 10/09/19 05:22 Baso % (Auto) 0.5 % (0.0-1.8) 10/09/19 05:22 Lymph # 1.2 K/mm3 (1.2-5.4) 10/09/19 05:22 [place] # 0.8 K/mm3 (0.0-0.8) 10/09/19 05:22 Eos # 0.1 K/mm3 (0.0-0.4) 10/09/19 05:22 Baso # 0.0 K/mm3 (0.0-0.1) 10/09/19 05:22 Seg Neutrophils % 78.4 % (40.0-70.0) H 10/09/19 05:22 Seg Neutrophils # 7.9 K/mm3 (1.8-7.7) H 10/09/19 05:22 Sodium 138 mmol/L (137-145) 10/09/19 05:22 Potassium 3.8 mmol/L (3.6-5.0) 10/09/19 05:22 Chloride 100.5 mmol/L (98-107) 10/09/19 05:22 Carbon Dioxide 24 mmol/L (22-30) 10/09/19 05:22 Anion Gap 17 mmol/L 10/09/19 05:22 BUN 29 mg/dL (9-20) H 10/09/19 05:22 Creatinine 0.9 mg/dL (0.8-1.3) 10/09/19 05:22 Estimated GFR > 60 ml/min 10/09/19 05:22 BUN/Creatinine Ratio 32 % 10/09/19 05:22 Glucose 105 mg/dL (75-100) H 10/09/19 05:22 POC Glucose 118 (70-105) H 10/06/19 20:41 Hemoglobin A1c 5.5 % (4-6) 09/27/19 13:59 Calcium 9.0 mg/dL (8.4-10.2) 10/09/19 05:22 Total Bilirubin 0.40 mg/dL (0.1-1.2) 09/27/19 13:59 AST 14 units/L (5-40) 09/27/19 13:59 ALT 8 units/L (7-56) 09/27/19 13:59 Alkaline Phosphatase 60 units/L (35-129) 09/27/19 13:59 Ammonia 31.0 umol/L (25-60) 10/09/19 05:22 Total Protein 7.1 g/dL (6.3-8.2) 09/27/19 13:59 Albumin 4.3 g/dL (3.9-5) 09/27/19 13:59 Albumin/Globulin Ratio 1.5 % 09/27/19 13:59 Triglycerides 146 mg/dL (2-149) 09/27/19 13:59 Cholesterol 267 mg/dL (50-199) H 09/27/19 13:59 LDL Cholesterol Direct 200 mg/dL (50-130) H 09/27/19 13:59 HDL Cholesterol 59 mg/dL (40-59) 09/27/19 13:59 Cholesterol/HDL Ratio 4.52 % 09/27/19 13:59 TSH 2.040 mlU/mL (0.270-4.200) 09/27/19 13:59 Valproic Acid 7.0 ug/mL (50-100) L 10/09/19 05:22 Coronavirus (PCR) Negative (Negative) 10/05/19 Unknown Core Measure Documentation - Palliative Care Palliative Care/ Comfort Measures: Not Applicable - Core Measures Any of the following diagnoses?: none Exam - Constitutional Vitals: Temp Pulse Resp BP Pulse Ox 98.1 F 110 H 18 138/90 90 10/08/19 21:56 10/08/19 21:56 10/08/19 21:56 10/08/19 21:56 10/08/19 19:38 General appearance: Present: no acute distress - EENT Eyes: Present: PERRL, EOM intact ENT: hearing intact, clear oral mucosa - Neck Neck: Present: supple, normal ROM - Respiratory Respiratory effort: normal Plan Activity: advance as tolerated Weight Bearing Status: Weight Bear as Tolerated Care Plan Goals: Maintain good and stable mental health Plan of Treatment: The patient should be compliant with medications, not to use drugs, and not to drink alcohol. The patient understands that if suicidal ideas, homicidal ideas or any endangering feeling arise, the patient should seek assistance including, but not limited to crisis hotline, and emergency room. Follow up with: PRIMARY CARE, [Primary Care Provider] - 7 Days Prescriptions: Benztropine [Cogentin] 2 mg PO QHS #30 tablet traZODone [Desyrel] 100 mg PO QHS #30 tablet Valproic Acid [Depakene] 250 mg PO BID #60 capsule Galantamine ER 24 mg PO QDAY #30 Namenda Xr 10 mg PO BID #60 Prevastatin 10 mg PO DAILY #30 FLUoxetine [PROzac] 20 mg PO TID #90 cap risperiDONE [RisperDAL] 1.5 mg PO BID #60 tablet
--- NOTE | 2019-10-09 10:06 | Progress Note ---
Subjective Date of service: 10/05/19 Principal diagnosis: Dementia with behavioral disturbance Subjective Comment: The patient's medical record was reviewed and the patient's progress discussed with the nursing staff. The nursing staff states the patient has been sedated and unable to ambulate without assistance. During my interview with the patient today he is lying in bed. He is awake. He is confused, but he's pleasant. He smiles. He is nonsensical. He is unable to give very little insight of whats going on with him. The patient states he feels "okay." He says, "I don't know" when asked about hallucinations and smiles. MENTAL STATUS EXAMINATION General Appearance and Behavior: Age appropriate, pleasant, polite Mood: Okay Affect and affective range: congruent with mood Thought Process: Illogical Thought Content: loose associations Speech: Normal volume, Regular rate and rhythm Suicidal Ideation: Denies SI Homicidal Ideation: Denies HI Hallucinations: "I don't know" Delusions: Yes Impulse Control: Unimpaired Insight and Judgment: Impaired Memory: Demented Attention: Distracted Orientation: Alert,and demented Diagnoses: Assessment and Plan - Psychiatric problem (1) Dementia with behavioral disturbance Current Visit: Yes Status: Acute Treatment Plan Continue current medications. Patient will be admitted for inpatient psychiatric evaluation, medication adjustment and close monitoring The patient's behavior, mood, sleep and appetite will be closely monitored. Patient will be enrolled in individual and group therapeutic sessions and encouraged to attend. Patient will be provided with a safe and structured environment. Patient's physical health needs will be addressed by the Hospitalist. Hospitalist Consulted Labs including CBC, CMP, Lipid profile and Hemoglobin A1C ordered Valproic Acid level Social Assessment will be completed and the [facility] will work with patient and family to ensure a suitable and safe disposition Medication adjustment will be made as clinically indicated Usual Wellness Anabaptism/Preservation: - Start Trazodone 50 mg po QHS & 50 mg po QHS PRN between 10 PM & 2 AM for insomnia - Start Melatonin 5 mg po QHS to promote circadian rhythm - Start [place]-3 for brain health, reduce impulsivity, and as adjunctive treatment for mood disorder, continue upon discharge given overall benefits. - Start B1 prophylaxis with 200 mg po for 5 days The patient agreed on the treatment plan, understood the risk, benefit, alternative treatment, potential consequence of no treatment, and gave informed consent. Medications and Allergies Allergies Allergy/AdvReac Type Severity Reaction Status Date / Time No Known Allergies Allergy Verified 09/27/19 12:52 Home Medications Medication Instructions Recorded Confirmed Last Taken Type Benztropine [Cogentin] 2 mg PO QHS #30 tablet 10/05/19 Unknown Rx FLUoxetine [PROzac] 20 mg PO TID #90 cap 10/05/19 Unknown Rx Galantamine ER 24 mg PO QDAY #30 10/05/19 Unknown Rx Namenda Xr 10 mg PO BID #60 10/05/19 Unknown Rx Prevastatin 10 mg PO DAILY #30 10/05/19 Unknown Rx Valproic Acid [Depakene] 250 mg PO BID #60 capsule 10/05/19 Unknown Rx risperiDONE [RisperDAL] 1.5 mg PO BID #60 tablet 10/05/19 Unknown Rx traZODone [Desyrel] 100 mg PO QHS #30 tablet 10/05/19 Unknown Rx Active Meds: Active Medications Benztropine Mesylate (Cogentin) [facility] Last Admin: 10/08/19 22:28 Dose: 2 mg Documented by: Fish Oil (Fish Oil) 2,000 mg PO BID [facility] Last Admin: 10/09/19 09:50 Dose: 2,000 mg Documented by: Fluoxetine HCl (Prozac) 10 mg PO QDAY [facility] Last Admin: 10/08/19 10:43 Dose: 10 mg Documented by: Melatonin (Melatonin) 10 mg PO QHS [facility] Last Admin: 10/08/19 22:27 Dose: 10 mg Documented by: Memantine (Memantine) 10 mg PO QDAY [facility] Last Admin: 10/09/19 09:50 Dose: 10 mg Documented by: Pravastatin Sodium (Pravachol) 40 [facility] Trazodone HCl (Desyrel) 50 mg [facility] Last Admin: 10/08/19 22:28 Dose: 50 mg Documented by: Ziprasidone (Geodon) 10 mg IM Q6H PRN PRN Reason: Agitation Results - Results Labs/Vitals: Laboratory Last Values WBC 10.0 K/mm3 (4.5-11.0) 10/09/19 05:22 RBC 4.42 M/mm3 (3.65-5.03) 10/09/19 05:22 Hgb 14.5 gm/dl (11.8-15.2) 10/09/19 05:22 Hct 41.4 % (35.5-45.6) 10/09/19 05:22 MCV 94 fl (84-94) 10/09/19 05:22 MCH 33 pg (28-32) H 10/09/19 05:22 MCHC 35 % (32-34) H 10/09/19 05:22 RDW 12.2 % (13.2-15.2) L 10/09/19 05:22 Plt Count 236 K/mm3 (140-440) 10/09/19 05:22 Lymph % (Auto) 11.5 % (13.4-35.0) L 10/09/19 05:22 [place] % (Auto) 8.3 % (0.0-7.3) H 10/09/19 05:22 Eos % (Auto) 1.3 % (0.0-4.3) 10/09/19 05:22 Baso % (Auto) 0.5 % (0.0-1.8) 10/09/19 05:22 Lymph # 1.2 K/mm3 (1.2-5.4) 10/09/19 05:22 [place] # 0.8 K/mm3 (0.0-0.8) 10/09/19 05:22 Eos # 0.1 K/mm3 (0.0-0.4) 10/09/19 05:22 Baso # 0.0 K/mm3 (0.0-0.1) 10/09/19 05:22 Seg Neutrophils % 78.4 % (40.0-70.0) H 10/09/19 05:22 Seg Neutrophils # 7.9 K/mm3 (1.8-7.7) H 10/09/19 05:22 Sodium 138 mmol/L (137-145) 10/09/19 05:22 Potassium 3.8 mmol/L (3.6-5.0) 10/09/19 05:22 Chloride 100.5 mmol/L (98-107) 10/09/19 05:22 Carbon Dioxide 24 mmol/L (22-30) 10/09/19 05:22 Anion Gap 17 mmol/L 10/09/19 05:22 BUN 29 mg/dL (9-20) H 10/09/19 05:22 Creatinine 0.9 mg/dL (0.8-1.3) 10/09/19 05:22 Estimated GFR > 60 ml/min 10/09/19 05:22 BUN/Creatinine Ratio 32 % 10/09/19 05:22 Glucose 105 mg/dL (75-100) H 10/09/19 05:22 POC Glucose 118 (70-105) H 10/06/19 20:41 Hemoglobin A1c 5.5 % (4-6) 09/27/19 13:59 Calcium 9.0 mg/dL (8.4-10.2) 10/09/19 05:22 Total Bilirubin 0.40 mg/dL (0.1-1.2) 09/27/19 13:59 AST 14 units/L (5-40) 09/27/19 13:59 ALT 8 units/L (7-56) 09/27/19 13:59 Alkaline Phosphatase 60 units/L (35-129) 09/27/19 13:59 Ammonia 31.0 umol/L (25-60) 10/09/19 05:22 Total Protein 7.1 g/dL (6.3-8.2) 09/27/19 13:59 Albumin 4.3 g/dL (3.9-5) 09/27/19 13:59 Albumin/Globulin Ratio 1.5 % 09/27/19 13:59 Triglycerides 146 mg/dL (2-149) 09/27/19 13:59 Cholesterol 267 mg/dL (50-199) H 09/27/19 13:59 LDL Cholesterol Direct 200 mg/dL (50-130) H 09/27/19 13:59 HDL Cholesterol 59 mg/dL (40-59) 09/27/19 13:59 Cholesterol/HDL Ratio 4.52 % 09/27/19 13:59 TSH 2.040 mlU/mL (0.270-4.200) 09/27/19 13:59 Valproic Acid 7.0 ug/mL (50-100) L 10/09/19 05:22 Coronavirus (PCR) Negative (Negative) 10/05/19 Unknown Last Vital Signs Temp 98.1 F 10/08/19 21:56 Pulse 110 H 10/08/19 21:56 Resp 18 10/08/19 21:56 BP 138/90 10/08/19 21:56 Pulse Ox 90 10/08/19 19:38
[2019-10-09] MEDS: FLUoxetine 10 MG TAB PO SCH (10:23)
[2019-10-09] MEDS ORDERED: PRAVASTATIN 40 MG TAB PO SCH (22:00)
== END 2019-10-09 17:18 | disposition home or self-care (01) | DRG 884 ==
LOC: 3A 12:16 → UNDOADMIN 12:16 → 5A 13:38
PROVIDERS: ADMIT Psychiatry & Neurology Psychiatry; ATTEND Psychiatry & Neurology Psychiatry
DX: F03.91 Unspecified dementia, unspecified severity, with behavioral disturbance (principal); R26.0 Ataxic gait; E87.5 Hyperkalemia
CPT/HCPCS: 36415; 70450; 80048; 80053; 80061; 80164; 82140; 82962; 83036; 84443; 85025; G0378; U0003-CS